=== PATIENT | male | born 1945 | race Caucasian/White ===

== ENCOUNTER → 2018-11-25 | Outpatient (CLI) | payer BC ==
[~2018-11-25] VITALS: Ht 157 cm; Wt 70.0 kg
[~2018-11-25] MED LIST: ALBU8.5H2 IH; ASP325T PO; ASP81TEC PO; ATOR40TA PO; CATHETER FLUSH 10 ML SYR IV PRN; DIPH25TA82 PO; FAMO20TA5 PO; FLT05NA16 NSEACH; ISM30TCR PO; METO-333 PO; NITR0.3T6 SL; OMEP20CA12 PO; PHEN-633 PO; PRAS10TA6 PO; SIMV80TA3 PO
[2018-11-25 08:56] LABS: ALANINE AMINOTRANSFERASE 27 U/L (0-55); ALBUMIN 4.2 GM/DL (3.2-4.5); ALKALINE PHOSPHATASE 103 U/L (40-136); BILIRUBIN,TOTAL 0.4 MG/DL (0.1-1.0); BUN/CREATININE RATIO 14; CALCIUM 8.3 MG/DL (8.5-10.1); CARBON DIOXIDE 26 MMOL/L (21-32); CHLORIDE 104 MMOL/L (98-107); CREATININE SERUM 0.88 MG/DL (0.60-1.30); GFR ESTIMATED > 60; GLUCOSE 106 MG/DL (70-105); POTASSIUM 3.9 MMOL/L (3.6-5.0); SODIUM 137 MMOL/L (135-145); TOTAL PROTEIN 7.2 GM/DL (6.4-8.2)
[2018-11-25 09:35] VITALS: BP 155/80
[2018-11-25 09:43] VITALS: BP 156/64
--- NOTE | 2018-11-25 18:59 | STRESS TEST ---
DATE OF SERVICE: 11/25/2018 EXERCISE MYOVIEW STRESS TEST REFERRING PHYSICIAN: Cyn Valentin DO Baseline heart rate is 64. Baseline blood pressure 154/82. Baseline EKG is sinus rhythm with no ischemic changes. In summary, the patient was injected with 10.93 mCi of technetium-99 Myoview and the resting images were obtained. Then, the patient started exercising with a baseline heart rate, blood pressure and EKG mentioned above. The patient was able to exercise for 7 minutes and 10 seconds on standard Renard protocol. With peak exercise level, EKG was showing [address] depression in II, III, aVF, V4, V5, V6. Blood pressure was 167/75. During recovery, heart rate and blood pressure returned to baseline. EKG returned to baseline. The resting and stress images were reviewed and compared in the short axis, horizontal long axis, and vertical long axis views. Review of the images showed good radiotracer uptake with no significant ischemia or infarction. SSS is 2, SDS 0, TID value 0.9. On the gated images, the left ventricle appeared to be normal size with normal contractility. Calculated ejection fraction 86%. CONCLUSION: 1. Fair exercise tolerance, a total of 7 minutes and 10 seconds on standard Renard protocol, total of 8.7 METS achieving 85% of maximum expected heart rate. 2. Appropriate heart rate and blood pressure response to exercise returned to baseline during recovery. 3. Nondiagnostic EKG changes with exercise returned to baseline during recovery. 4. No significant ischemia or infarction on SPECT images. 5. Normal left ventricular size with normal contractility. Calculated ejection fraction 86%. Job ID: [id number] DocumentID: [id number] Dictated Date: 11/25/2018 16:30:22 Chemical Educator Date: 11/25/2018 18:57:59 Dictated By: KEMAR HO MD
== END ==
LOC: CARD 08:04
PROVIDERS: ATTEND Physician Assistant
DX: I25.10 Atherosclerotic heart disease of native coronary artery without angina pectoris (principal); I10 Essential (primary) hypertension; E78.5 Hyperlipidemia, unspecified; G40.909 Epilepsy, unspecified, not intractable, without status epilepticus
CPT/HCPCS: 36415; 78452; 80053; 93017; 93306

== ENCOUNTER 2019-01-17 05:33 | Outpatient (CLI) | payer BC ==
[~2019-01-17] VITALS: Ht 154 cm; Wt 70.4 kg
[~2019-01-17 05:33] MED LIST changes: -CATHETER FLUSH 10 ML SYR IV PRN
[2019-01-17] MEDS ORDERED: ASPI-586 PO (12:14)
[2019-01-17] MEDS ORDERED: FAMO20TA5 PO (12:14)
[2019-01-17] MEDS ORDERED: OMEG-9 PO (12:14)
[2019-01-17] MEDS ORDERED: ATOR40TA70 PO (12:14)
[2019-01-17] MEDS ORDERED: FLUT9.9S NS (12:14)
[2019-01-17] MEDS ORDERED: PHEN100C11 PO (12:14)
[2019-01-17] MEDS ORDERED: ISOS30TA3 PO (12:14)
[2019-01-17] MEDS ORDERED: LISI10TA2 PO (12:14)
[2019-01-17] MEDS ORDERED: RT-ALBUINH IH (12:14)
[2019-01-17] MEDS ORDERED: METO-333 PO (12:14)
== END 2019-01-17 12:20 ==
LOC: PREOP 05:33
PROVIDERS: ATTEND Surgery
DX: Z01.818 Encounter for other preprocedural examination (principal)

== ENCOUNTER 2019-01-21 07:53 | Day surgery (SDC) | payer BC ==
[~2019-01-21 07:53] MED LIST changes: +ASPI-586 PO; +ATOR40TA70 PO; +FLUT9.9S NS; +ISOS30TA3 PO; +LISI10TA2 PO; +OMEG-9 PO; +PHEN100C11 PO; +RT-ALBUINH IH
[2019-01-21] MEDS ORDERED: LACTATED RINGERS 1,000 ML IV ONE (07:59)
[2019-01-21] MEDS ORDERED: LACTATED RINGERS 1,000 ML IV STA (08:23)
[2019-01-21] MEDS ORDERED: PROPOFOL INJECTION 50 ML IV ONE (08:25)
[2019-01-21 08:26] VITALS: BP 166/86
[2019-01-21 09:00] VITALS: BP 108/58
--- NOTE | 2019-01-21 09:04 | Progress Note-Post Operative ---
Post-Operative Progess Note Surgeon (s)/Slitting Machine Feeder (s) Surgeon ANI QUICK DO Slitting Machine Feeder: na Pre-Operative Diagnosis blood in stools Post-Operative Diagnosis post anal fissure, rectal polyp x2 Procedure & Operative Findings Date of Procedure 01/21/19 Procedure Performed/Findings colonoscopy with hot bx polypectomy x 2 Anesthesia Type per speedboat operator Estimated Blood Loss Estimated blood loss (mL): none Specimens/Packing Specimens Removed rectal polyp x 2 ANI QUICK DO Jan 21, 2019 09:04 POS
[2019-01-21 09:05] VITALS: BP 112/57
[2019-01-21] MEDS ORDERED: DOCU-143 PO (09:06)
--- NOTE | 2019-01-21 09:07 | Discharge Inst-Simple/Standard ---
Discharge Inst-Standard Discharge Medications New, Converted or Re-Newed RX: Other (over the counter Colace or stool softener\) Patient Instructions/Follow Up Plan of Care/Instructions/FU: 2 weeks Pamela Activity as Tolerated: Yes Discharge Diet: Regular Diet (high fiber) ANI QUICK DO Jan 21, 2019 09:06 POS
[2019-01-21 09:10] VITALS: BP 131/66
[2019-01-21 09:45] VITALS: BP 174/97
[2019-01-21 11:46] VITALS: BP 174/97
--- NOTE | 2019-01-21 14:22 | OPERATIVE REPORT ---
DATE OF SERVICE: 01/21/2019 PREOPERATIVE DIAGNOSIS: Blood in stools. POSTOPERATIVE DIAGNOSES: Diverticulosis, posterior anal fissure, rectal polyp x2. PROCEDURE: Colonoscopy with hot biopsy polypectomy x2. SURGEON: Ani Santiago DO ANESTHESIA: Per QUANTITATIVE ANALYST DEVELOPER. ESTIMATED BLOOD LOSS: None. COMPLICATIONS: None. INDICATIONS: The patient is a 73-year-old male with blood in stool. He understands risks and benefits of procedure and wished to proceed with procedure. Consent was signed in the chart. DESCRIPTION OF PROCEDURE: The patient was taken to the endoscopy suite, placed in left lateral recumbent position. Timeout was performed. Digital rectal exam was performed. No palpable polyps, masses or ulcerations. The patient noted to have a posterior anal fissure. Scope was inserted into the rectum and advanced all the way to cecum with minimal difficulty. Prep was adequate. Scope was then slowly retracted back. There were no polyps, masses or ulcerations in the cecum, ascending, transverse and descending colon. In the sigmoid colon, there is moderate amount of diverticulosis present. Scope was continuously retracted back into the rectum where there were 2 small polyps, which hot biopsy polypectomy was performed. Scope was retroflexed noting no other pathology. Scope was returned to its normal position, slowly withdrawn until completely removed. The patient tolerated procedure well without any complications, taken to recovery room in stable condition. RECOMMENDATIONS: The patient will be started on Colace 100 mg b.i.d. We will have him follow up in the office in 2 weeks for reexamination. I would consider diltiazem cream. The patient will need repeat colonoscopy in 5 years due to polyps. Follow up on pathology in 2-week appointment. The patient with diverticulosis, recommend high fiber diet. Job ID: [id number] DocumentID: [id number] Dictated Date: 01/21/2019 09:09:19 Cooking Instructor Date: 01/21/2019 14:21:16 Dictated By: ANI SANTIAGO DO
--- NOTE | 2019-01-23 13:45 | Anesthesia-General Post-Op ---
MAC Patient Condition Mental Status/LOC: Same as Preop Cardiovascular: Satisfactory Nausea/Vomiting: Absent Respiratory: Satisfactory Pain: Controlled Complications: Absent Post Op Complications Complications None Follow Up Care/Instructions Patient Instructions None needed. Anesthesiology Discharge Order Discharge Order late entry from 01/31/19 at 11:30: Patient is doing well, no complaints, stable vital signs, no apparent adverse anesthesia problems. No complications reported per nursing. CAL TOLEDO CRNA Jan 23, 2019 13:45 POS
--- OUTSIDE RECORDS SUMMARY | 2019-02-15 03:37 | XMS REPORT | Clinical Summary ---
Author Author User, Zachariah Parikh Organization Cyn Valentin DO, FACP Address Unknown Phone Allergies, Adverse Reactions, Alerts Allergy Name Reaction Description Start Date Severity Status Pr ovider No Known Allergies Issac shields Conditions or Problems Problem Name Problem Code Onset Date Status Entry Date Provider Comment Standard Description Annotate GERD 530.81 Active Cyn Valentin Esophageal reflux JOSEPH'S ESOPHAGUS 530.85 Active Cyn Valentin Joseph's esophagus HYPERCHOLESTEROLEMIA 272.0 Active Cyn Valentin Pure hypercholesterolemia RHINITIS 472.0 Resolved Cyn Valentin Chronic rhinitis SEIZURE 780.3 Active Cyn Valentin Convulsions DERMATITIS 692.9 Resolved Cyn Valentin Contact dermatitis and other eczema, unspecified cause RHINITIS, ALLERGIC NOS 477.9 Resolved Katrina Valentin Allergic rhinitis, cause unspecified CHEST PAIN, ATYPICAL 786.59 Resolved Cny Valentin Other chest pain PALPITATIONS, OCCASIONAL 785.1 Resolved Cyn Valentin Palpitations NEOPLASM, SKIN, UNCERTAIN BEHAVIOR 238.2 Resolved 2 Cyn Valentin Neoplasm of uncertain behavior of skin MYOCARDIAL PERFUSION SCAN, WITH STRESS TEST, ABNORMAL 794.39 Resolved Cyn Valentin Other nonsp ecific abnormal function study of cardiovascular system CORONARY ATHEROSCLEROSIS, [place] VESSEL 414.01 Active Cyn Valentin Coronary atherosclerosis of [place] n[place] nary artery PNEUMONIA 486 Resolved Cyn Valentin Pneumonia, organism unspecified COUGH 786.2 Resolved Cyn Valentin Cough HEALTH SCREENING V70.0 Resolved Cyn Olmstead rner Routine general medical examination at a health care facility HEALTH SCREENING V70.0 Inactive Cyn Olmstead rner Routine general medical examination at a health care facility ELEVATED BLOOD PRESSURE WITHOUT DIAGNOSIS OF HYPERTENSION 796.2 Resolved Cyn Valentin Elevated bl ood pressure reading without diagnosis of hypertension FOOT PAIN, LEFT 729.5 Resolved Cyn franco Pain in limb DERMATITIS, CONTACT, NOS 692.9 Active Cyn Valentin Contact dermatitis and other eczema, uns pecified cause HEALTH SCREENING V70.0 Inactive Cyn Olmstead rner Routine general medical examination at a health care facility Medication List Medication Instructions Start Date Stop Date Generic Name NDC Status Provider Patient Instruction FLONASE 50 MCG/ACT SUSP 2 squirts each nostril daily FLUTICASONE PROPIONATE 00466850021 Active Veda Piedra FISH OIL 1000 MG CAPS 3 PO daily OMEGA-3 FATTY AC IDS [id number] Active Cyn Valentin PROAIR HFA 108 (90 BASE) MCG/ACT AERS 2 puff Q4 hrs pr n wheezing Please provide patient spacer ALBUTEROL SULFATE [id number] No Longe r Active Cyn Valentin CLOBETASOL PROPIONATE 0.05 % CREA Apply to affected ar ea on left hand and lower arms at night for two weeks only. CLOBETASOL PRO PIONATE 87939972617 No Longer Active Cyn Valentin EFFIENT 10 MG TABS 1 PO daily PRASUGREL HCL 0000 5513023 No Longer Active Cynjosh Valentin LIPITOR 80 MG TABS 1 PO daily ATORVASTATIN CALCIUM 23390 041104 Active Cyn Janeth Valentin PREDNISONE 20 MG TAB 2 pills at once for 2 days then 1 pill daily for 2 days PREDNISONE 88251771121 No Longer Active Cyn Rubi Valentin BIAXIN XL PAC 500 MG TB24 2 pills at same time daily for 7 days CLARITHROMYCIN 83743759949 No Longer Active Cyn Janeth Valentin KISHOR 180 MG TABS 1 PO QD FEXOFENADINE HCL No Longer Active Cynjosh Valentin ASPIRIN 81 MG TBEC 1 po daily ASPIRIN 82670940793 No Longer Active Cynjosh Valentin SIMVASTATIN 80 MG TABS 1 po daily SIMVASTATIN 16 661863205 No Longer Active Cynjosh Valentin OMEPRAZOLE 20 MG CPDR 1 po daily OMEPRAZOLE 93487 044184 No Longer Active Cynjosh Valentin METOPROLOL TARTRATE 25 MG TABS 1 PO BID METOP ROLOL TARTRATE 72703301922 Active Cynjosh Valentin PEPCID 20 MG TAB 1 PO BID FAMOTIDINE 25234905818 Acti ve Cynjosh Valentin NITROSTAT 0.4 MG SL TAB 1 pill under tongue prn ches t pain. May repeat twice then must go to ER NITROGLYCERIN 77057767787 Active Mi ndjosh Valentin IMDUR 30 MG TAB CR 1 PO daily ISOSORBIDE MONONITR ATE 12934569278 Active Cynjosh Valentin ASPIRIN 325 MG TABS 1 PO daily ASPIRIN 26033113722 Ac tive Cynjosh Valentin BENADRYL 25 MG CAP 1-2 PO QHS for allergies DIP HENHYDRAMINE HCL 59551718660 Active Cyn Janeth Valentin LIPITOR 80 MG TABS 1 PO daily ATORVASTATIN CALCIU M 08890984399 No Longer Active Cyn Janeth Barbie CARMOL 40% UREA LOTION Apply to affected area twice daily fo r two weeks CARMOL 40% UREA LOTION No Longer Active M pamela Janeth Barbie [place] Apply to affected areas twice daily for two weeks [place] No Longer Active Cyn Michelle tesfaye Barbie FLONASE 50 MCG/DOSE INHALANT 2 puffs each nostril at night 03/26 FLONASE 50 MCG/DOSE INHALANT 52938151726 No Longer Active Cyn Adela tamela Barbie VITAMIN C 500 MG TABS 1 po daily ASCORBIC ACID 12 324615563 No Longer Active Cyn Janeth Valentin MULTIVITAMINS TABS 1 po daily MULTIPLE VITAMIN 0 6523389501 No Longer Active Cyn Janeth Valentin CLARITIN 10 MG TABS 1 po daily LORATADINE 6753986 6510 No Longer Active Cyn Janeth Valentin SIMVASTATIN 80 MG TABS 1 po daily SIMVASTATIN 8882310469 3 No Longer Active Cynjosh Valentin DILANTIN 100 MG CAPS 3 tabs po daily PHENYTOIN SOD IUM EXTENDED 32146833222 Active Veda Piedra Immunizations Vaccine Administration Date Value Standard Paddy cription Influenza vaccine given done influenz a virus vaccine, unspecified formulation pneumococcal immunization administered Done pneumococcal polysaccharide vaccine, 23 valent Influenza vaccine given 02/03/11 influenz a virus vaccine, unspecified formulation Vital Signs Date Name Value Unit Range Description blood pressure, diastolic - 8462-4 74 mm[Hg] BP hensley blood pressure, systolic - 8480-6 126 mm[Hg] BP sys pulse rate E&M - 8867-4 70 /min H eart rate respiratory rate E&M - 9279-1 14 /min Resp rate weight E&M - 3141-9 159 [lb_av] Weigh t Measured blood pressure, diastolic - 8462-4 74 mm[Hg] BP hensley blood pressure, systolic - 8480-6 136 mm[Hg] BP sys blood pressure, diastolic - 8462-4 78 mm[Hg] BP hensley blood pressure, systolic - 8480-6 160 mm[Hg] BP sys pulse rate E&M - 8867-4 64 /min H eart rate respiratory rate E&M - 9279-1 14 /min Resp rate temperature E&M 98.6 [degF] Body temp erature weight E&M - 3141-9 160 [lb_av] Weigh t Measured Diagnostic Results Date Name Value Unit Range Description Clinical Lists Update: CBC,CMP,FLP,TSH,H GA1C - Chemistry Estimated Glomerular Filtration Rate (calc) >60 mL/ min/1.73m2 albumin, serum 4.6 g/dL alkaline phosphatase, serum 82 U/L urea nitrogen, blood 11 mg/dL calcium, serum 9.1 mg/dL chloride, serum 103 mmol/L cholesterol, serum 133 mg/dL carbon dioxide, venous blood 29 mmol/L creatinine, serum 0.81 mg/dL HDL cholesterol, serum 98 mg/dL hemoglobin A1C, blood, as % of total hemoglobin 6.1 % thyroid stimulating hormone, serum 2.764 u[iU]/mL LDL cholesterol, serum 57 mg/dL potassium, serum 3.8 mmol/L protein, total, serum 7.4 g/dL aspartate aminotransferase (SGOT), serum 22 U/L alanine aminotransferase (SGPT), serum 23 U/L bilirubin, serum, total 0.5 mg/dL triglyceride, serum, fasting 204 mg/dL sodium, serum 138 mmol/L anion gap, serum 6 cholesterol/HDL ratio, serum, percent 3.80 glucose, plasma fasting 93 mg/dL Clinical Lists Update: CBC,CMP,FLP,TSH,H GA1C - Hematology platelet count 205 10*3/mm3 hematocrit, blood 43.2 % leukocyte count, blood 6.5 10*3/mm3 mean corpuscular volume, RBC 90.9 fL erythrocyte (RBC) count 4.75 10*6/mm3 red blood cell distribution width 12.6 % hemoglobin, blood 15.5 g/dL Clinical Lists Update: CBC,CMP,FLP,TSH,H GA1C - Toxicology phenytoin level, serum 7.6 ug/mL Clinical Lists Update: CMP,FLP - Pastoral Worker ry calcium, serum 9.0 mg/dL aspartate aminotransferase (SGOT), serum 28 U/L alanine aminotransferase (SGPT), serum 26 U/L chloride, serum 102 mmol/L bilirubin, serum, total 0.5 mg/dL triglyceride, serum, fasting 166 mg/dL cholesterol, serum 142 mg/dL sodium, serum 139 mmol/L anion gap, serum 9 carbon dioxide, venous blood 28 mmol/L cholesterol/HDL ratio, serum, percent 3.46 glucose, plasma fasting 93 mg/dL protein, total, serum 7.3 g/dL potassium, serum 4.7 mmol/L urea nitrogen, blood 11 mg/dL LDL cholesterol, serum 68 mg/dL creatinine, serum 0.84 mg/dL albumin, serum 4.4 g/dL HDL cholesterol, serum 101 mg/dL Estimated Glomerular Filtration Rate (calc) >60 mL/ min/1.73m2 alkaline phosphatase, serum 73 U/L Lab Report: A1C HPLC - Chemistry hemoglobin A1C, blood, as % of total hemoglobin 6.1 % 4.0-5.6 Lab Report: CBC - Chemistry polymorphonuclear neutrophils, absolute, manual 3.42 10E9/L {Cells}/uL 1.80-7.80 mean corpuscular hemoglobin concentration, rbc 35.9 g/dL 31.6-35.5 monocytes, absolute, manual 0.81 10E9/L {Cells}/uL 0.20-1. 00 lymphocytes, absolute, manual 2.02 10E9/L {Cells}/uL 1.00- 4.00 basophils, absolute, manual 0.01 10E9/L {Cells}/uL 0.00-0. 20 eosinophils, absolute, manual 0.25 10E9/L {Cells}/uL 0.00- 0.45 Lab Report: CBC - Hematology neutrophil count, CSF 52.6 % lymphocytes as percent of blood leukocytes, manual count 3 1.0 % mean platelet volume 10.9 fL 9.5-12.8 monocytes as percent of blood leukocytes 12.4 % basophils as percent of blood leukocytes, automated count 0.2 % mean corpuscular hemoglobin, RBC 32.6 pg 27. 6-33.8 hemoglobin, blood 15.5 g/dL 12.5-17.3 mean corpuscular volume, RBC 90.9 fL 83.7-99 .8 hematocrit, blood 43.2 % 38.3-51.2 platelet count 205 669-165 3575/03/11 eosinophils as percent of blood leukocytes 3.8 % Lab Report: CHEM 14 - Chemistry urea nitrogen, blood 11 mg/dL - urea nitrogen, blood 11 mg/dL - blood glucose, random 93 mg/dL 70-100 blood glucose, random 93 mg/dL 70-100 alkaline phosphatase, serum 73 U/L 43-123 alkaline phosphatase, serum 82 U/L 43-123 albumin, serum 4.4 g/dL 3.9-4.9 albumin, serum 4.6 g/dL 3.9-4.9 calcium, serum 9.1 mg/dL 8.5-10.5 calcium, serum 9.0 mg/dL 8.5-10.5 potassium, serum 4.7 mmol/L 3.5-5.5 aspartate aminotransferase (SGOT), serum 22 U/L 0-40 aspartate aminotransferase (SGOT), serum 28 U/L 0-40 alanine aminotransferase (SGPT), serum 23 U/L 0-40 alanine aminotransferase (SGPT), serum 26 U/L 0-40 bilirubin, serum, total 0.5 mg/dL 0.1-1.3 bilirubin, serum, total 0.5 mg/dL 0.1-1.3 sodium, serum 138 mmol/L 033-193 6298/09/03 sodium, serum 139 mmol/L 549-216 3498/03/11 chloride, blood 103 mmol/L 96-108 chloride, blood 102 mmol/L 96-108 bicarbonate, serum 29 mmol/L 18-30 bicarbonate, serum 28 mmol/L 18-30 protein total, urine 7.4 GM/DL 6.5-8.2 protein total, urine 7.3 GM/DL 6.5-8.2 potassium, serum 3.8 mmol/L 3.5-5.5 Lab Report: CHEM 14 - Lab CREATININE 0.81 0.50-1.50 CREATININE 0.84 0.50-1.50 Lab Report: LIPID GRP - Chemistry HDL cholesterol, serum 41 mg/dL 40-125 cholesterol, serum 133 mg/dL 954-021 7599/09/03 triglyceride, serum, random 166 mg/dL 30-150 HDL cholesterol, serum 35 mg/dL 40-125 cholesterol, serum 142 mg/dL 441-259 2818/03/11 triglyceride, serum, random 204 mg/dL 30-150 Lab Report: TSH - Chemistry thyroid stimulating hormone, serum 2.764 u[iU]/mL 0 .300-5.000 Encounters Code Encounter Date Provider Facility CPT-31443 Ofc Vst, Est Level IV 15:52:21 CDT Cyn Chapman tamela Valentin DO, FACP CPT-43213 Ofc Vst, Est Level III 11:14:55 CDT Cyn S tamela Barbie [facility] CPT-17486 Ofc Vst, Est Level IV 16:08:02 CDT Cyn Adela rapp Barbie [facility] CPT-25834 Ofc Vst, Est Level IV 15:52:39 COMPUTER TECHNOLOGIST Cyn Chapman tamela Valentin [facility] CPT-45005 Ofc Vst, Est Level IV 11:10:54 CDT Cyn Chapman tamela Valentin, DO, FACP CPT-57820 Ofc Vst, Est Level IV 10:19:53 CDT Cyn Chapman tamela Valentin, DO, FACP CPT-27088 Ofc Vst, Est Level IV 10:30:27 CDT Cyn Adela Valentin, DO, FACP CPT-61881 Ofc Vst, Est Level IV 15:27:12 CDT Cyn Adela Valentin, DO, FACP CPT-25889 Ofc Vst, Est Level IV 09:52:53 COMPUTER TECHNOLOGIST Cynjosh Valentin, DO, FACP CPT-87153 Ofc Vst, Est Level IV 10:01:47 CDT Cyn Adela Valentin, DO, FACP CPT-82641 Ofc Vst, Est Level IV 10:01:47 COMPUTER TECHNOLOGIST Cyn Goldsmithi Gilberto Barbie, DO, FACP CPT-83647 Ofc Vst, Est Level IV 09:28:13 CDT Cyn Goldsmithi Gilberto Barbie, DO, FACP CPT-36014 Ofc Vst, Est Level IV 10:29:59 COMPUTER TECHNOLOGIST Cyn Lemaner Cynjosh Valentin, DO, FACP CPT-51780 Ofc Vst, Est Level IV 14:47:20 COMPUTER TECHNOLOGIST Cyn Goldsmithi Gilberto Barbie, DO, FACP CPT-87433 Ofc Vst, New Level IV 14:14:21 CDT Cyn Lemajoan Valentin, DO, FACP Procedures Code Procedure Name Date Entry Date Standard Desc ription CPT-80320 Preventive, Est, (65+) 14:26:26 CDT CPT-09966 Preventive, Est, (65+) 20:45:46 CDT CPT-98794 Preventive, Est, (65+) 15:01:19 CDT CPT-77648 Preventive, Est, (40-64) 10:39:03 CDT 05/07
--- OUTSIDE RECORDS SUMMARY | 2019-02-15 03:37 | XMS REPORT | Clinical Summary ---
[...] cause unspecified CHEST PAIN, ATYPICAL 786.59 Resolved Cyn Valentin Other chest pain PALPITATIONS, OCCASIONAL 785.1 Resolved Cyn Valentin Palpitations NEOPLASM, SKIN, UNCERTAIN BEHAVIOR 238.2 Resolved 2 Cyn Valentin Neoplasm of uncertain behavior of skin MYOCARDIAL PERFUSION SCAN, WITH STRESS TEST, ABNORMAL 794.39 Resolved Cyn Valentin Other nonsp ecific abnormal function study of cardiovascular system CORONARY ATHEROSCLEROSIS, [place] VESSEL 414.01 Active Cyn Valentin Coronary atherosclerosis of [place] nalini nary artery PNEUMONIA 486 Resolved Cyn [...] 2 squirts each nostril daily FLUTICASONE PROPIONATE 02520379789 Active Veda Piedra FISH OIL 1000 MG CAPS 3 PO daily OMEGA-3 FATTY AC IDS 65505269615 Active Cyn Valentin PROAIR HFA 108 (90 BASE) MCG/ACT AERS 2 puff Q4 hrs pr n wheezing Please provide patient spacer ALBUTEROL SULFATE 12650742450 No Longe r Active Cyn Valentin CLOBETASOL PROPIONATE 0.05 % CREA Apply to affected ar ea on left hand and lower arms at night for two weeks only. CLOBETASOL PRO PIONATE 43744156286 No Longer Active Cyn Valentin EFFIENT 10 MG TABS 1 PO daily PRASUGREL HCL 0000 3543362 No Longer Active Cynjosh Valentin LIPITOR 80 MG TABS 1 PO daily ATORVASTATIN CALCIUM 97030 674704 Active Cyn Janeth Valentin PREDNISONE 20 MG TAB 2 pills at once for 2 days then 1 pill daily for 2 days PREDNISONE 63610182337 No Longer Active Cyn Rubi Valentin BIAXIN XL PAC 500 MG TB24 2 pills at same time daily for 7 days CLARITHROMYCIN 68601567292 No Longer Active Cyn Janeth Valentin KISHOR 180 MG TABS 1 PO QD FEXOFENADINE HCL No Longer Active Cynjosh Valentin ASPIRIN 81 MG TBEC 1 po daily ASPIRIN 70242081549 No Longer Active Cynjosh Valentin SIMVASTATIN 80 MG TABS 1 po daily SIMVASTATIN 16 904764618 No Longer Active Cynjosh Valentin OMEPRAZOLE 20 MG CPDR 1 po daily OMEPRAZOLE 08451 048117 No Longer Active Cynjosh Valentin METOPROLOL TARTRATE 25 MG TABS 1 PO BID METOP ROLOL TARTRATE 69520247220 Active Cynjosh Valentin PEPCID 20 MG TAB 1 PO BID FAMOTIDINE 88720515417 Acti ve Cynjosh Valentin NITROSTAT 0.4 MG SL TAB 1 pill under tongue prn ches t pain. May repeat twice then must go to ER NITROGLYCERIN 73670436375 Active Mi ndjosh Valentin IMDUR 30 MG TAB CR 1 PO daily ISOSORBIDE MONONITR ATE 88622656005 Active Cynjosh Valentin ASPIRIN 325 MG TABS 1 PO daily ASPIRIN 23190164087 Ac tive Cynjosh Valentin BENADRYL 25 MG CAP 1-2 PO QHS for allergies DIP HENHYDRAMINE HCL 15278198566 Active Cyn Janeth Valentin LIPITOR 80 MG TABS 1 PO daily ATORVASTATIN CALCIU M 79460806397 No Longer Active Cyn Janeth Barbie CARMOL [...] at night 03/26 FLONASE 50 MCG/DOSE INHALANT 59899793925 No Longer Active Cyn Adela tamela Barbie VITAMIN C 500 MG TABS 1 po daily ASCORBIC ACID 12 444743199 No Longer Active Cyn Janeth Valentin MULTIVITAMINS TABS 1 po daily MULTIPLE VITAMIN 0 3230557680 No Longer Active Cyn Janeth Valentin CLARITIN 10 MG TABS 1 po daily LORATADINE 9423442 6245 No Longer Active Cyn Janeth Valentin SIMVASTATIN 80 MG TABS 1 po daily SIMVASTATIN 7469068683 3 No Longer Active Cynjosh Valentin DILANTIN 100 MG CAPS 3 tabs po daily PHENYTOIN SOD IUM EXTENDED 72819507427 Active Veda Piedra Immunizations Vaccine Administration Date [...] 7.6 ug/mL Clinical Lists Update: CMP,FLP - Railroad Car Cleaner ry calcium, serum 9.0 mg/dL aspartate aminotransferase [...] blood 43.2 % 38.3-51.2 platelet count 205 204-928 6600/03/11 eosinophils as percent of blood leukocytes 3.8 [...] 0.5 mg/dL 0.1-1.3 sodium, serum 138 mmol/L 328-072 7730/09/03 sodium, serum 139 mmol/L 914-108 1638/03/11 chloride, blood 103 mmol/L 96-108 chloride, blood [...] 41 mg/dL 40-125 cholesterol, serum 133 mg/dL 114-313 2261/09/03 triglyceride, serum, random 166 mg/dL 30-150 HDL cholesterol, serum 35 mg/dL 40-125 cholesterol, serum 142 mg/dL 627-249 9162/03/11 triglyceride, serum, random 204 mg/dL 30-150 Lab Report: TSH - Chemistry thyroid stimulating hormone, serum 2.764 u[iU]/mL 0 .300-5.000 Encounters Code Encounter Date Provider Facility CPT-25128 Ofc Vst, Est Level IV 15:52:21 CDT Cyn Chapman tamela Valentin DO, FACP CPT-41889 Ofc Vst, Est Level III 11:14:55 CDT Cyn S tamela [facility] CPT-33525 Ofc Vst, Est Level IV 16:08:02 CDT Cyn Adela rapp Bar[facility] CPT-09950 Ofc Vst, Est Level IV 15:52:39 CONSULTING INTERN Cyn Chapman tamela Valentin [facility] CPT-50652 Ofc Vst, Est Level IV 11:10:54 CDT Cyn Chapman tamela Valentin, DO, FACP CPT-72801 Ofc Vst, Est Level IV 10:19:53 CDT Cyn Chapman tamela Valentin, DO, FACP CPT-38638 Ofc Vst, Est Level IV 10:30:27 CDT Cyn Adela Valentin, DO, FACP CPT-11229 Ofc Vst, Est Level IV 15:27:12 CDT Cyn Adela Valentin, DO, FACP CPT-81169 Ofc Vst, Est Level IV 09:52:53 CONSULTING INTERN Cynjosh Valentin, DO, FACP CPT-09040 Ofc Vst, Est Level IV 10:01:47 CDT Cyn Adela Valentin, DO, FACP CPT-48758 Ofc Vst, Est Level IV 10:01:47 CONSULTING INTERN Cyn Goldsmithi Gilberto Barbie, DO, FACP CPT-26927 Ofc Vst, Est Level IV 09:28:13 CDT Cyn Goldsmithi Gilberto Barbie, DO, FACP CPT-37883 Ofc Vst, Est Level IV 10:29:59 CONSULTING INTERN Cyn Lemaner Cynjosh Valentin, DO, FACP CPT-01030 Ofc Vst, Est Level IV 14:47:20 CONSULTING INTERN Cyn Goldsmithi Gilberto Barbie, DO, FACP CPT-33044 Ofc Vst, New Level IV 14:14:21 CDT Cyn Lemajoan Valentin, DO, FACP Procedures Code Procedure Name Date Entry Date Standard Desc ription CPT-91503 Preventive, Est, (65+) 14:26:26 CDT CPT-44282 Preventive, Est, (65+) 20:45:46 CDT CPT-45036 Preventive, Est, (65+) 15:01:19 CDT CPT-53000 Preventive, Est, (40-64) 10:39:03 CDT 05/07
--- OUTSIDE RECORDS SUMMARY | 2019-02-15 03:37 | XMS REPORT | Clinical Summary ---
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 CLOBETASOL PRO PIONATE 13246670261 No Longer Active Cyn Valentin EFFIENT 10 MG TABS 1 PO daily PRASUGREL HCL 0000 0710649 No Longer Active Cynjosh Valentin LIPITOR 80 MG TABS 1 PO daily ATORVASTATIN CALCIUM 57149 746784 Active Cyn Janeth Valentin PREDNISONE 20 MG TAB 2 pills at once for 2 days then 1 pill daily for 2 days PREDNISONE 23826782573 No Longer Active Cyn Rubi Valentin BIAXIN XL PAC 500 MG TB24 2 pills at same time daily for 7 days CLARITHROMYCIN 87654930352 No Longer Active Cyn Janeth Valentin KISHOR 180 MG TABS 1 PO QD FEXOFENADINE HCL No Longer Active Cynjosh Valentin ASPIRIN 81 MG TBEC 1 po daily ASPIRIN 05666456743 No Longer Active Cynjosh Valentin SIMVASTATIN 80 MG TABS 1 po daily SIMVASTATIN 16 167734501 No Longer Active Cynjosh Valentin OMEPRAZOLE 20 MG CPDR 1 po daily OMEPRAZOLE 84402 055059 No Longer Active Cynjosh Valentin METOPROLOL TARTRATE 25 MG TABS 1 PO BID METOP ROLOL TARTRATE 33805100333 Active Cynjosh Valentin PEPCID 20 MG TAB 1 PO BID FAMOTIDINE 05727247228 Acti ve Cynjosh Valentin NITROSTAT 0.4 MG SL TAB 1 pill under tongue prn ches t pain. May repeat twice then must go to ER NITROGLYCERIN 30572574072 Active Mi ndjosh Valentin IMDUR 30 MG TAB CR 1 PO daily ISOSORBIDE MONONITR ATE 08640596500 Active Cynjosh Valentin ASPIRIN 325 MG TABS 1 PO daily ASPIRIN 29161417770 Ac tive Cynjosh Valentin BENADRYL 25 MG CAP 1-2 PO QHS for allergies DIP HENHYDRAMINE HCL 43027678692 Active Cyn Janeth Valentin LIPITOR 80 MG TABS 1 PO daily ATORVASTATIN CALCIU M 10382217368 No Longer Active Cyn Janeth Barbie CARMOL [...] at night 03/26 FLONASE 50 MCG/DOSE INHALANT 61502321085 No Longer Active Cyn Adela tamela Barbie VITAMIN C 500 MG TABS 1 po daily ASCORBIC ACID 12 894162372 No Longer Active Cyn Janeth Valentin MULTIVITAMINS TABS 1 po daily MULTIPLE VITAMIN 0 3355109092 No Longer Active Cyn Janeth Valentin CLARITIN 10 MG TABS 1 po daily LORATADINE 4564367 4196 No Longer Active Cyn Janeth Valentin SIMVASTATIN 80 MG TABS 1 po daily SIMVASTATIN 3615863582 3 No Longer Active Cynjosh Valentin DILANTIN 100 MG CAPS 3 tabs po daily PHENYTOIN SOD IUM EXTENDED 79920797508 Active Veda Piedra Immunizations Vaccine Administration Date [...] 7.6 ug/mL Clinical Lists Update: CMP,FLP - Security Attendant ry calcium, serum 9.0 mg/dL aspartate aminotransferase [...] blood 43.2 % 38.3-51.2 platelet count 205 985-299 1825/03/11 eosinophils as percent of blood leukocytes 3.8 [...] 0.5 mg/dL 0.1-1.3 sodium, serum 138 mmol/L 172-380 8488/09/03 sodium, serum 139 mmol/L 649-541 8836/03/11 chloride, blood 103 mmol/L 96-108 chloride, blood [...] 41 mg/dL 40-125 cholesterol, serum 133 mg/dL 537-828 7172/09/03 triglyceride, serum, random 166 mg/dL 30-150 HDL cholesterol, serum 35 mg/dL 40-125 cholesterol, serum 142 mg/dL 569-517 5982/03/11 triglyceride, serum, random 204 mg/dL 30-150 Lab Report: TSH - Chemistry thyroid stimulating hormone, serum 2.764 u[iU]/mL 0 .300-5.000 Encounters Code Encounter Date Provider Facility CPT-69076 Ofc Vst, Est Level IV 15:52:21 CDT Cyn Chapman tamela Valentin DO, FACP CPT-62434 Ofc Vst, Est Level III 11:14:55 CDT Cyn S tamela Barbie [facility] CPT-88201 Ofc Vst, Est Level IV 16:08:02 CDT Cyn Adela rapp Barbie [facility] CPT-07273 Ofc Vst, Est Level IV 15:52:39 AEROSPACE TECHNICIAN Cyn Chapman tamela Valentin [facility] CPT-87792 Ofc Vst, Est Level IV 11:10:54 CDT Cyn Chapman tamela Valentin, DO, FACP CPT-50726 Ofc Vst, Est Level IV 10:19:53 CDT Cyn Chapman tamela Valentin, DO, FACP CPT-26147 Ofc Vst, Est Level IV 10:30:27 CDT Cyn Adela Valentin, DO, FACP CPT-37240 Ofc Vst, Est Level IV 15:27:12 CDT Cyn Adela Valentin, DO, FACP CPT-95630 Ofc Vst, Est Level IV 09:52:53 AEROSPACE TECHNICIAN Cynjosh Valentin, DO, FACP CPT-38655 Ofc Vst, Est Level IV 10:01:47 CDT Cyn Adela Valentin, DO, FACP CPT-43886 Ofc Vst, Est Level IV 10:01:47 AEROSPACE TECHNICIAN Cyn Goldsmithi Gilberto Barbie, DO, FACP CPT-82563 Ofc Vst, Est Level IV 09:28:13 CDT Cyn Goldsmithi Gilberto Barbie, DO, FACP CPT-54751 Ofc Vst, Est Level IV 10:29:59 AEROSPACE TECHNICIAN Cyn Lemaner Cynjosh Valentin, DO, FACP CPT-21122 Ofc Vst, Est Level IV 14:47:20 AEROSPACE TECHNICIAN Cyn Goldsmithi Gilberto Barbie, DO, FACP CPT-77010 Ofc Vst, New Level IV 14:14:21 CDT Cyn Lemajoan Valentin, DO, FACP Procedures Code Procedure Name Date Entry Date Standard Desc ription CPT-26909 Preventive, Est, (65+) 14:26:26 CDT CPT-14758 Preventive, Est, (65+) 20:45:46 CDT CPT-58047 Preventive, Est, (65+) 15:01:19 CDT CPT-88464 Preventive, Est, (40-64) 10:39:03 CDT 05/07
--- OUTSIDE RECORDS SUMMARY | 2019-02-15 03:37 | XMS REPORT | Clinical Summary ---
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 CLOBETASOL PRO PIONATE 58790127471 No Longer Active Cyn Valentin EFFIENT 10 MG TABS 1 PO daily PRASUGREL HCL 0000 8433343 No Longer Active Cynjosh Valentin LIPITOR 80 MG TABS 1 PO daily ATORVASTATIN CALCIUM 20330 897002 Active Cyn Janeth Valentin PREDNISONE 20 MG TAB 2 pills at once for 2 days then 1 pill daily for 2 days PREDNISONE 42803808350 No Longer Active Cyn Rubi Valentin BIAXIN XL PAC 500 MG TB24 2 pills at same time daily for 7 days CLARITHROMYCIN 94079531269 No Longer Active Cyn Janeth Valentin KISHOR 180 MG TABS 1 PO QD FEXOFENADINE HCL No Longer Active Cynjosh Valentin ASPIRIN 81 MG TBEC 1 po daily ASPIRIN 71180614630 No Longer Active Cynjosh Valentin SIMVASTATIN 80 MG TABS 1 po daily SIMVASTATIN 16 881066246 No Longer Active Cynjosh Valentin OMEPRAZOLE 20 MG CPDR 1 po daily OMEPRAZOLE 25012 987829 No Longer Active Cynjosh Valentin METOPROLOL TARTRATE 25 MG TABS 1 PO BID METOP ROLOL TARTRATE 92693345056 Active Cynjosh Valentin PEPCID 20 MG TAB 1 PO BID FAMOTIDINE 61484100157 Acti ve Cynjosh Valentin NITROSTAT 0.4 MG SL TAB 1 pill under tongue prn ches t pain. May repeat twice then must go to ER NITROGLYCERIN 51787124567 Active Mi ndjosh Valentin IMDUR 30 MG TAB CR 1 PO daily ISOSORBIDE MONONITR ATE 97661538148 Active Cynjosh Valentin ASPIRIN 325 MG TABS 1 PO daily ASPIRIN 48526819004 Ac tive Cynjosh Valentin BENADRYL 25 MG CAP 1-2 PO QHS for allergies DIP HENHYDRAMINE HCL 94475909549 Active Cyn Janeth Valentin LIPITOR 80 MG TABS 1 PO daily ATORVASTATIN CALCIU M 78110560493 No Longer Active Cyn Janeth Barbie CARMOL [...] at night 03/26 FLONASE 50 MCG/DOSE INHALANT 77711871240 No Longer Active Cyn Adela tamela Barbie VITAMIN C 500 MG TABS 1 po daily ASCORBIC ACID 12 753218125 No Longer Active Cyn Janeth Valentin MULTIVITAMINS TABS 1 po daily MULTIPLE VITAMIN 0 5131697337 No Longer Active Cyn Janeth Valentin CLARITIN 10 MG TABS 1 po daily LORATADINE 3332728 1126 No Longer Active Cyn Janeth Valentin SIMVASTATIN 80 MG TABS 1 po daily SIMVASTATIN 7759006230 3 No Longer Active Cynjosh Valentin DILANTIN 100 MG CAPS 3 tabs po daily PHENYTOIN SOD IUM EXTENDED 24038522114 Active Veda Piedra Immunizations Vaccine Administration Date [...] 7.6 ug/mL Clinical Lists Update: CMP,FLP - Novelty Balloon Assembler And Packer ry calcium, serum 9.0 mg/dL aspartate aminotransferase [...] neutrophils, absolute, manual 3.42 10E9/L {Cells}/uL 1.80-7.80 monocytes, absolute, manual 0.81 10E9/L {Cells}/uL 0.20-1. 00 mean corpuscular hemoglobin concentration, rbc 35.9 g/dL 31.6-35.5 lymphocytes, absolute, manual 2.02 10E9/L {Cells}/uL 1.00- 4.00 eosinophils, absolute, manual 0.25 10E9/L {Cells}/uL 0.00- 0.45 basophils, absolute, manual 0.01 10E9/L {Cells}/uL 0.00-0. 20 Lab Report: CBC - Hematology neutrophil count, CSF 52.6 % lymphocytes as percent of blood leukocytes, manual count 3 1.0 % eosinophils as percent of blood leukocytes 3.8 % platelet count 205 727-175 9265/03/11 mean corpuscular hemoglobin, RBC 32.6 pg 27. 6-33.8 mean platelet volume 10.9 fL 9.5-12.8 basophils as percent of blood leukocytes, automated count 0.2 % hemoglobin, blood 15.5 g/dL 12.5-17.3 hematocrit, blood 43.2 % 38.3-51.2 monocytes as percent of blood leukocytes 12.4 % mean corpuscular volume, RBC 90.9 fL 83.7-99 .8 Lab Report: CHEM 14 - Chemistry calcium, serum 9.0 mg/dL 8.5-10.5 calcium, serum 9.1 mg/dL 8.5-10.5 bilirubin, serum, total 0.5 mg/dL 0.1-1.3 bilirubin, serum, total 0.5 mg/dL 0.1-1.3 urea nitrogen, blood 11 mg/dL 5-25 urea nitrogen, blood 11 mg/dL 5-25 blood glucose, random 93 mg/dL 70-100 blood glucose, random 93 mg/dL 70-100 protein total, urine 7.3 GM/DL 6.5-8.2 protein total, urine 7.4 GM/DL 6.5-8.2 potassium, serum 4.7 mmol/L 3.5-5.5 potassium, serum 3.8 mmol/L 3.5-5.5 albumin, serum 4.4 g/dL 3.9-4.9 albumin, serum 4.6 g/dL 3.9-4.9 chloride, blood 102 mmol/L 96-108 chloride, blood 103 mmol/L 96-108 bicarbonate, serum 28 mmol/L 18-30 bicarbonate, serum 29 mmol/L 18-30 sodium, serum 139 mmol/L 994-728 0469/03/11 sodium, serum 138 mmol/L 807-289 9620/09/03 alkaline phosphatase, serum 73 U/L 43-123 alkaline phosphatase, serum 82 U/L 43-123 aspartate aminotransferase (SGOT), serum 28 U/L 0-40 aspartate aminotransferase (SGOT), serum 22 U/L 0-40 alanine aminotransferase (SGPT), serum 26 U/L 0-40 alanine aminotransferase (SGPT), serum 23 U/L 0-40 Lab Report: CHEM 14 - Lab CREATININE 0.81 0.50-1.50 CREATININE 0.84 0.50-1.50 Lab Report: LIPID GRP - Chemistry cholesterol, serum 133 mg/dL 719-252 8940/03/11 HDL cholesterol, serum 35 mg/dL 40-125 triglyceride, serum, random 204 mg/dL 30-150 triglyceride, serum, random 166 mg/dL 30-150 HDL cholesterol, serum 41 mg/dL 40-125 cholesterol, serum 142 mg/dL 100-200 Lab Report: TSH - Chemistry thyroid stimulating hormone, serum 2.764 u[iU]/mL 0 .300-5.000 Encounters Code Encounter Date Provider Facility CPT-77772 Ofc Vst, Est Level IV 15:52:21 CDT Cyn Chapman tamela Valentin DO, FACP CPT-70113 Ofc Vst, Est Level III 11:14:55 CDT Cyn S tamela Valentin [facility] CPT-89035 Ofc Vst, Est Level IV 16:08:02 CDT Cyn Adela rapp Barbie [facility] CPT-00743 Ofc Vst, Est Level IV 15:52:39 COPING MACHINE ASSEMBLER Cyn Chapman tamela Valentin [facility] CPT-56028 Ofc Vst, Est Level IV 11:10:54 CDT Cyn Chapman tamela Valentin, DO, FACP CPT-93531 Ofc Vst, Est Level IV 10:19:53 CDT Cyn Chapman tamela Valentin, DO, FACP CPT-87079 Ofc Vst, Est Level IV 10:30:27 CDT Cyn Adela Valentin, DO, FACP CPT-82581 Ofc Vst, Est Level IV 15:27:12 CDT Cyn Adela Valentin, DO, FACP CPT-26206 Ofc Vst, Est Level IV 09:52:53 COPING MACHINE ASSEMBLER Cynjosh Valentin, DO, FACP CPT-89622 Ofc Vst, Est Level IV 10:01:47 CDT Cyn Adela Valentin, DO, FACP CPT-67309 Ofc Vst, Est Level IV 10:01:47 COPING MACHINE ASSEMBLER Cyn Goldsmithi Gilberto Barbie, DO, FACP CPT-62805 Ofc Vst, Est Level IV 09:28:13 CDT Cyn Goldsmithi Gilberto Barbie, DO, FACP CPT-40960 Ofc Vst, Est Level IV 10:29:59 COPING MACHINE ASSEMBLER Cyn Lemaner Cynjosh Valentin, DO, FACP CPT-13673 Ofc Vst, Est Level IV 14:47:20 COPING MACHINE ASSEMBLER Cyn Goldsmithi Gilberto Barbie, DO, FACP CPT-42557 Ofc Vst, New Level IV 14:14:21 CDT Cyn Lemaojan Valentin, DO, FACP Procedures Code Procedure Name Date Entry Date Standard Desc ription CPT-20983 Preventive, Est, (65+) 14:26:26 CDT CPT-39842 Preventive, Est, (65+) 20:45:46 CDT CPT-11349 Preventive, Est, (65+) 15:01:19 CDT CPT-62701 Preventive, Est, (40-64) 10:39:03 CDT 05/07
--- OUTSIDE RECORDS SUMMARY | 2019-02-15 03:38 | XMS REPORT | Clinical Summary ---
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 CLOBETASOL PRO PIONATE 28402878040 No Longer Active Cyn Valentin EFFIENT 10 MG TABS 1 PO daily PRASUGREL HCL 0000 2915382 No Longer Active Cynjosh Valentin LIPITOR 80 MG TABS 1 PO daily ATORVASTATIN CALCIUM 88077 083165 Active Cyn Janeth Valentin PREDNISONE 20 MG TAB 2 pills at once for 2 days then 1 pill daily for 2 days PREDNISONE 02219091321 No Longer Active Cyn Rubi Valentin BIAXIN XL PAC 500 MG TB24 2 pills at same time daily for 7 days CLARITHROMYCIN 53329052626 No Longer Active Cyn Janeth Valentin KISHOR 180 MG TABS 1 PO QD FEXOFENADINE HCL No Longer Active Cynjosh Valentin ASPIRIN 81 MG TBEC 1 po daily ASPIRIN 68723268983 No Longer Active Cynjosh Valentin SIMVASTATIN 80 MG TABS 1 po daily SIMVASTATIN 16 027181549 No Longer Active Cynjosh Valentin OMEPRAZOLE 20 MG CPDR 1 po daily OMEPRAZOLE 85659 594330 No Longer Active Cynjosh Valentin METOPROLOL TARTRATE 25 MG TABS 1 PO BID METOP ROLOL TARTRATE 86498093098 Active Cynjosh Valentin PEPCID 20 MG TAB 1 PO BID FAMOTIDINE 01489477602 Acti ve Cynjosh Valentin NITROSTAT 0.4 MG SL TAB 1 pill under tongue prn ches t pain. May repeat twice then must go to ER NITROGLYCERIN 05995449667 Active Mi ndjosh Valentin IMDUR 30 MG TAB CR 1 PO daily ISOSORBIDE MONONITR ATE 97857418235 Active Cynjosh Valentin ASPIRIN 325 MG TABS 1 PO daily ASPIRIN 52187354114 Ac tive Cynjosh Valentin BENADRYL 25 MG CAP 1-2 PO QHS for allergies DIP HENHYDRAMINE HCL 44246324694 Active Cyn Janeth Valentin LIPITOR 80 MG TABS 1 PO daily ATORVASTATIN CALCIU M 61741662618 No Longer Active Cyn Janeth Barbie CARMOL [...] at night 03/26 FLONASE 50 MCG/DOSE INHALANT 08058580693 No Longer Active Cyn Adela tamela Barbie VITAMIN C 500 MG TABS 1 po daily ASCORBIC ACID 12 664344979 No Longer Active Cyn Janeth Valentin MULTIVITAMINS TABS 1 po daily MULTIPLE VITAMIN 0 8779486866 No Longer Active Cyn Janeth Valentin CLARITIN 10 MG TABS 1 po daily LORATADINE 4305296 7657 No Longer Active Cyn Janeth Valentin SIMVASTATIN 80 MG TABS 1 po daily SIMVASTATIN 6931894727 3 No Longer Active Cynjosh Valentin DILANTIN 100 MG CAPS 3 tabs po daily PHENYTOIN SOD IUM EXTENDED 74426760733 Active Veda Piedra Immunizations Vaccine Administration Date [...] 7.6 ug/mL Clinical Lists Update: CMP,FLP - Electron Beam Photo Mask Maker ry calcium, serum 9.0 mg/dL aspartate aminotransferase [...] blood 43.2 % 38.3-51.2 platelet count 205 504-526 5579/03/11 eosinophils as percent of blood leukocytes 3.8 [...] 0.5 mg/dL 0.1-1.3 sodium, serum 138 mmol/L 392-012 9430/09/03 sodium, serum 139 mmol/L 791-539 9825/03/11 chloride, blood 103 mmol/L 96-108 chloride, blood [...] 41 mg/dL 40-125 cholesterol, serum 133 mg/dL 833-249 5996/09/03 triglyceride, serum, random 166 mg/dL 30-150 HDL cholesterol, serum 35 mg/dL 40-125 cholesterol, serum 142 mg/dL 587-361 7960/03/11 triglyceride, serum, random 204 mg/dL 30-150 Lab Report: TSH - Chemistry thyroid stimulating hormone, serum 2.764 u[iU]/mL 0 .300-5.000 Encounters Code Encounter Date Provider Facility CPT-01986 Ofc Vst, Est Level IV 15:52:21 CDT Cyn Chapman tamela Valentin DO, FACP CPT-26076 Ofc Vst, Est Level III 11:14:55 CDT Cyn S tamela Barbie [facility] CPT-63920 Ofc Vst, Est Level IV 16:08:02 CDT Cyn Adela rapp Barbie [facility] CPT-11414 Ofc Vst, Est Level IV 15:52:39 HYDRATOR Cyn Chapman tamela Valentin [facility] CPT-50085 Ofc Vst, Est Level IV 11:10:54 CDT Cyn Chapman tamela Valentin, DO, FACP CPT-24623 Ofc Vst, Est Level IV 10:19:53 CDT Cyn Chapman tamela Valentin, DO, FACP CPT-24676 Ofc Vst, Est Level IV 10:30:27 CDT Cyn Adela Valentin, DO, FACP CPT-30452 Ofc Vst, Est Level IV 15:27:12 CDT Cyn Adela Valentin, DO, FACP CPT-41557 Ofc Vst, Est Level IV 09:52:53 HYDRATOR Cynjosh Valentin, DO, FACP CPT-88294 Ofc Vst, Est Level IV 10:01:47 CDT Cny Adela Valentin, DO, FACP CPT-88814 Ofc Vst, Est Level IV 10:01:47 HYDRATOR Cyn Goldsmithi Gilberto Barbie, DO, FACP CPT-03830 Ofc Vst, Est Level IV 09:28:13 CDT Cyn Goldsmithi Gilberto Barbie, DO, FACP CPT-93951 Ofc Vst, Est Level IV 10:29:59 HYDRATOR Cyn Lemaner Cynjosh Valentin, DO, FACP CPT-57052 Ofc Vst, Est Level IV 14:47:20 HYDRATOR Cyn Goldsmithi Gilberto Barbie, DO, FACP CPT-89181 Ofc Vst, New Level IV 14:14:21 CDT Cny Lemajoan Valentin, DO, FACP Procedures Code Procedure Name Date Entry Date Standard Desc ription CPT-69463 Preventive, Est, (65+) 14:26:26 CDT CPT-23659 Preventive, Est, (65+) 20:45:46 CDT CPT-44223 Preventive, Est, (65+) 15:01:19 CDT CPT-56921 Preventive, Est, (40-64) 10:39:03 CDT 05/07
--- OUTSIDE RECORDS SUMMARY | 2019-02-15 03:38 | XMS REPORT | Clinical Summary ---
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 CLOBETASOL PRO PIONATE 74788826595 No Longer Active Cyn Valentin EFFIENT 10 MG TABS 1 PO daily PRASUGREL HCL 0000 7608782 No Longer Active Cynjosh Valentin LIPITOR 80 MG TABS 1 PO daily ATORVASTATIN CALCIUM 25019 108677 Active Cyn Janeth Valentin PREDNISONE 20 MG TAB 2 pills at once for 2 days then 1 pill daily for 2 days PREDNISONE 90965782185 No Longer Active Cyn Rubi Valentin BIAXIN XL PAC 500 MG TB24 2 pills at same time daily for 7 days CLARITHROMYCIN 19357947002 No Longer Active Cyn Janeth Valentin KISHOR 180 MG TABS 1 PO QD FEXOFENADINE HCL No Longer Active Cynjosh Valentin ASPIRIN 81 MG TBEC 1 po daily ASPIRIN 79986184055 No Longer Active Cynjosh Valentin SIMVASTATIN 80 MG TABS 1 po daily SIMVASTATIN 16 799284272 No Longer Active Cynjosh Valentin OMEPRAZOLE 20 MG CPDR 1 po daily OMEPRAZOLE 67619 709282 No Longer Active Cynjosh Valentin METOPROLOL TARTRATE 25 MG TABS 1 PO BID METOP ROLOL TARTRATE 54835111234 Active Cynjosh Valentin PEPCID 20 MG TAB 1 PO BID FAMOTIDINE 97282688312 Acti ve Cynjosh Valentin NITROSTAT 0.4 MG SL TAB 1 pill under tongue prn ches t pain. May repeat twice then must go to ER NITROGLYCERIN 36907207321 Active Mi ndjosh Valentin IMDUR 30 MG TAB CR 1 PO daily ISOSORBIDE MONONITR ATE 88442138847 Active Cynjosh Valentin ASPIRIN 325 MG TABS 1 PO daily ASPIRIN 03015632108 Ac tive Cynjosh Valentin BENADRYL 25 MG CAP 1-2 PO QHS for allergies DIP HENHYDRAMINE HCL 65332455536 Active Cyn Janeth Valentin LIPITOR 80 MG TABS 1 PO daily ATORVASTATIN CALCIU M 38335732012 No Longer Active Cyn Janeth Barbie CARMOL [...] at night 03/26 FLONASE 50 MCG/DOSE INHALANT 67548143365 No Longer Active Cyn Adela tamela Barbie VITAMIN C 500 MG TABS 1 po daily ASCORBIC ACID 12 946171216 No Longer Active Cyn Janeth Valentin MULTIVITAMINS TABS 1 po daily MULTIPLE VITAMIN 0 7913649149 No Longer Active Cyn Janeth Valentin CLARITIN 10 MG TABS 1 po daily LORATADINE 4712899 4420 No Longer Active Cyn Janeth Valentin SIMVASTATIN 80 MG TABS 1 po daily SIMVASTATIN 8186162500 3 No Longer Active Cynjosh Valentin DILANTIN 100 MG CAPS 3 tabs po daily PHENYTOIN SOD IUM EXTENDED 39158475979 Active Veda Piedra Immunizations Vaccine Administration Date [...] 7.6 ug/mL Clinical Lists Update: CMP,FLP - Channel Sales Manager ry calcium, serum 9.0 mg/dL aspartate aminotransferase [...] blood leukocytes 3.8 % platelet count 205 044-324 8970/03/11 mean corpuscular hemoglobin, RBC 32.6 pg 27. [...] 29 mmol/L 18-30 sodium, serum 139 mmol/L 827-612 0612/03/11 sodium, serum 138 mmol/L 480-982 6955/09/03 alkaline phosphatase, serum 73 U/L 43-123 alkaline phosphatase, serum 82 U/L 43-123 aspartate aminotransferase (SGOT), serum 28 U/L 0-40 aspartate aminotransferase (SGOT), serum 22 U/L 0-40 alanine aminotransferase (SGPT), serum 26 U/L 0-40 alanine aminotransferase (SGPT), serum 23 U/L 0-40 Lab Report: CHEM 14 - Lab CREATININE 0.81 0.50-1.50 CREATININE 0.84 0.50-1.50 Lab Report: LIPID GRP - Chemistry cholesterol, serum 133 mg/dL 439-294 1306/03/11 HDL cholesterol, serum 35 mg/dL 40-125 triglyceride, serum, random 204 mg/dL 30-150 triglyceride, serum, random 166 mg/dL 30-150 HDL cholesterol, serum 41 mg/dL 40-125 cholesterol, serum 142 mg/dL 100-200 Lab Report: TSH - Chemistry thyroid stimulating hormone, serum 2.764 u[iU]/mL 0 .300-5.000 Encounters Code Encounter Date Provider Facility CPT-77163 Ofc Vst, Est Level IV 15:52:21 CDT Cyn Chapman tamela Valentin DO, FACP CPT-33956 Ofc Vst, Est Level III 11:14:55 CDT Cyn S tamela Valentin [facility] CPT-30569 Ofc Vst, Est Level IV 16:08:02 CDT Cyn Adela rapp Barbie [facility] CPT-03545 Ofc Vst, Est Level IV 15:52:39 INVESTMENT BROKER Cyn Chapman tamela Valentin [facility] CPT-25329 Ofc Vst, Est Level IV 11:10:54 CDT Cyn Chapman tamela Valentin, DO, FACP CPT-83026 Ofc Vst, Est Level IV 10:19:53 CDT Cyn Chapman tamela Valentin, DO, FACP CPT-21752 Ofc Vst, Est Level IV 10:30:27 CDT Cyn Adela Valentin, DO, FACP CPT-78987 Ofc Vst, Est Level IV 15:27:12 CDT Cyn Adela Valentin, DO, FACP CPT-17285 Ofc Vst, Est Level IV 09:52:53 INVESTMENT BROKER Cynjosh Valentin, DO, FACP CPT-93184 Ofc Vst, Est Level IV 10:01:47 CDT Cyn Adela Valentin, DO, FACP CPT-23112 Ofc Vst, Est Level IV 10:01:47 INVESTMENT BROKER Cyn Goldsmithi Gilberto Barbie, DO, FACP CPT-53695 Ofc Vst, Est Level IV 09:28:13 CDT Cyn Goldsmithi Gilberto Barbie, DO, FACP CPT-29823 Ofc Vst, Est Level IV 10:29:59 INVESTMENT BROKER Cyn Lemaner Cynjosh Valentin, DO, FACP CPT-87757 Ofc Vst, Est Level IV 14:47:20 INVESTMENT BROKER Cyn Goldsmithi Gilberto Barbie, DO, FACP CPT-93656 Ofc Vst, New Level IV 14:14:21 CDT Cyn Lemajoan Valentin, DO, FACP Procedures Code Procedure Name Date Entry Date Standard Desc ription CPT-77586 Preventive, Est, (65+) 14:26:26 CDT CPT-81664 Preventive, Est, (65+) 20:45:46 CDT CPT-56115 Preventive, Est, (65+) 15:01:19 CDT CPT-77261 Preventive, Est, (40-64) 10:39:03 CDT 05/07
--- OUTSIDE RECORDS SUMMARY | 2019-02-15 03:38 | XMS REPORT | Clinical Summary ---
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 CLOBETASOL PRO PIONATE 97840581062 No Longer Active Cyn Valentin EFFIENT 10 MG TABS 1 PO daily PRASUGREL HCL 0000 0754635 No Longer Active Cynjosh Valentin LIPITOR 80 MG TABS 1 PO daily ATORVASTATIN CALCIUM 51133 580520 Active Cyn Janeth Valentin PREDNISONE 20 MG TAB 2 pills at once for 2 days then 1 pill daily for 2 days PREDNISONE 85182230261 No Longer Active Cyn Rubi Valentin BIAXIN XL PAC 500 MG TB24 2 pills at same time daily for 7 days CLARITHROMYCIN 66205171989 No Longer Active Cyn Janeth Valentin KISHOR 180 MG TABS 1 PO QD FEXOFENADINE HCL No Longer Active Cynjosh Valentin ASPIRIN 81 MG TBEC 1 po daily ASPIRIN 42049314524 No Longer Active Cynjosh Valentin SIMVASTATIN 80 MG TABS 1 po daily SIMVASTATIN 16 253220592 No Longer Active Cynjosh Valentin OMEPRAZOLE 20 MG CPDR 1 po daily OMEPRAZOLE 87164 221127 No Longer Active Cynjosh Valentin METOPROLOL TARTRATE 25 MG TABS 1 PO BID METOP ROLOL TARTRATE 00470132514 Active Cynjosh Valentin PEPCID 20 MG TAB 1 PO BID FAMOTIDINE 96258628146 Acti ve Cynjosh Valentin NITROSTAT 0.4 MG SL TAB 1 pill under tongue prn ches t pain. May repeat twice then must go to ER NITROGLYCERIN 24120465916 Active Mi ndjosh Valentin IMDUR 30 MG TAB CR 1 PO daily ISOSORBIDE MONONITR ATE 66345961126 Active Cynjosh Valentin ASPIRIN 325 MG TABS 1 PO daily ASPIRIN 54070593036 Ac tive Cynjosh Valentin BENADRYL 25 MG CAP 1-2 PO QHS for allergies DIP HENHYDRAMINE HCL 89014426680 Active Cyn Janeth Valentin LIPITOR 80 MG TABS 1 PO daily ATORVASTATIN CALCIU M 04828123548 No Longer Active Cyn Janeth Barbie CARMOL [...] at night 03/26 FLONASE 50 MCG/DOSE INHALANT 92604076496 No Longer Active Cyn Adela tamela Barbie VITAMIN C 500 MG TABS 1 po daily ASCORBIC ACID 12 426983925 No Longer Active Cyn Janeth Valentin MULTIVITAMINS TABS 1 po daily MULTIPLE VITAMIN 0 7598952628 No Longer Active Cyn Janeth Valentin CLARITIN 10 MG TABS 1 po daily LORATADINE 6815152 6797 No Longer Active Cyn Janeth Valentin SIMVASTATIN 80 MG TABS 1 po daily SIMVASTATIN 5706826634 3 No Longer Active Cynjosh Valentin DILANTIN 100 MG CAPS 3 tabs po daily PHENYTOIN SOD IUM EXTENDED 78989185723 Active Veda Piedra Immunizations Vaccine Administration Date [...] 7.6 ug/mL Clinical Lists Update: CMP,FLP - Tester Equipment ry calcium, serum 9.0 mg/dL aspartate aminotransferase [...] blood 43.2 % 38.3-51.2 platelet count 205 518-417 2592/03/11 eosinophils as percent of blood leukocytes 3.8 [...] 0.5 mg/dL 0.1-1.3 sodium, serum 138 mmol/L 306-810 3715/09/03 sodium, serum 139 mmol/L 305-131 4050/03/11 chloride, blood 103 mmol/L 96-108 chloride, blood [...] 41 mg/dL 40-125 cholesterol, serum 133 mg/dL 418-552 5773/09/03 triglyceride, serum, random 166 mg/dL 30-150 HDL cholesterol, serum 35 mg/dL 40-125 cholesterol, serum 142 mg/dL 710-493 0279/03/11 triglyceride, serum, random 204 mg/dL 30-150 Lab Report: TSH - Chemistry thyroid stimulating hormone, serum 2.764 u[iU]/mL 0 .300-5.000 Encounters Code Encounter Date Provider Facility CPT-21698 Ofc Vst, Est Level IV 15:52:21 CDT Cyn Chapman tamela Valentin DO, FACP CPT-55870 Ofc Vst, Est Level III 11:14:55 CDT Cyn S tamela [facility] CPT-87415 Ofc Vst, Est Level IV 16:08:02 CDT Cyn Adela rapp Bar[facility] CPT-42541 Ofc Vst, Est Level IV 15:52:39 PIANO CASE [employer] Cyn Chapman tamela Valentin [facility] CPT-17706 Ofc Vst, Est Level IV 11:10:54 CDT Cyn Chapman tamela Valentin, DO, FACP CPT-68484 Ofc Vst, Est Level IV 10:19:53 CDT Cyn Chapman tamela Valentin, DO, FACP CPT-45366 Ofc Vst, Est Level IV 10:30:27 CDT Cyn Adela Valentin, DO, FACP CPT-96346 Ofc Vst, Est Level IV 15:27:12 CDT Cyn Adela Valentin, DO, FACP CPT-04246 Ofc Vst, Est Level IV 09:52:53 [employer]O CASE [employer] Cynjosh Valentin, DO, FACP CPT-65721 Ofc Vst, Est Level IV 10:01:47 CDT Cyn Adela Valentin, DO, FACP CPT-61750 Ofc Vst, Est Level IV 10:01:47 [employer]O CASE [employer] Cyn Goldsmithi Gilberto Barbie, DO, FACP CPT-50724 Ofc Vst, Est Level IV 09:28:13 CDT Cyn Goldsmithi Gilberto Barbie, DO, FACP CPT-83372 Ofc Vst, Est Level IV 10:29:59 PI[employer]O CASE MAKER Cyn Lemaner Cynjosh Valentin, DO, FACP CPT-17692 Ofc Vst, Est Level IV 14:47:20 PI[employer]O CASE MAKER Cyn Goldsmithi Gilberto Barbie, DO, FACP CPT-58848 Ofc Vst, New Level IV 14:14:21 CDT Cyn Lemajoan Valentin, DO, FACP Procedures Code Procedure Name Date Entry Date Standard Desc ription CPT-61647 Preventive, Est, (65+) 14:26:26 CDT CPT-75500 Preventive, Est, (65+) 20:45:46 CDT CPT-56885 Preventive, Est, (65+) 15:01:19 CDT CPT-30055 Preventive, Est, (40-64) 10:39:03 CDT 05/07
--- OUTSIDE RECORDS SUMMARY | 2019-02-15 03:38 | XMS REPORT | Clinical Summary ---
Author Author Zachariah mejia Organization Cyn Valentin [place], [place] [address] Phone Unavailable Allergies, Adverse Reactions, Alerts Allergy Name Reaction Description Start Date Severity Status Pr ovider No Known Allergies Issac shields Conditions or Problems Problem Name Problem Code Onset Date Status Entry Date Provider Comment Standard Description Annotate GERD 530.81 Active Cyn Valentin ESOPHAGEAL REFLUX JOSEPH'S ESOPHAGUS 530.85 Active Cyn Valentin JOSEPH'S ESOPHAGUS HYPERCHOLESTEROLEMIA 272.0 Active Cyn Valentin PURE HYPERCHOLESTEROLEMIA SEIZURE 780.3 Active Cyn Valentin CORONARY ATHEROSCLEROSIS, [place]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.01 Active Cyn Valentin 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 ELEVATED BLOOD PRESSURE WITHOUT DIAGNOSIS OF HYPERTENSION 796.2 Active Cyn Valentin ELEVATED BL OOD PRESSURE READING WITHOUT DIAGNOSIS OF HYPERTENSION FOOT PAIN, LEFT 729.5 Active Cyn Espinal er PAIN IN SOFT TISSUES OF LIMB Medication List Medication Instructions Start Date Stop Date Generic Name NDC Status Provider Patient Instruction DILANTIN 100 MG CAPS 3 tabs po daily PHENYTOIN SOD IUM EXTENDED 25243151898 Active Veda Piedra BENADRYL 25 MG CAP 1-2 PO QHS for allergies DIP HENHYDRAMINE HCL 66704333632 Active Cyn Valentin ASPIRIN 325 MG TABS 1 PO daily ASPIRIN 44480976894 Ac tive Cyn Valentin IMDUR 30 MG TAB CR 1 PO daily ISOSORBIDE MONONITR ATE 23825694913 Active Cyn Valentin NITROSTAT 0.4 MG SL TAB 1 pill under tongue prn ches t pain. May repeat twice then must go to ER NITROGLYCERIN 73792967854 Active Mi ndi Janeth Valentin PEPCID 20 MG TAB 1 PO BID FAMOTIDINE 96889339357 Acti ve Cyn Valentin METOPROLOL TARTRATE 25 MG TABS 1 PO BID METOP ROLOL TARTRATE 51051737180 Active Cyn Valentin LIPITOR 80 MG TABS 1 PO daily ATORVASTATIN CALCIUM 05454 798061 Active Cyn Valentin FISH OIL 1000 MG CAPS 3 PO daily OMEGA-3 FATTY AC IDS 77408465877 Active Cyn Valentin FLONASE 50 MCG/ACT SUSP 2 squirts each nostril daily FLUTICASONE PROPIONATE 28767193288 Active Veda Piedra Immunizations Vaccine Administration Date Value Standard Paddy cription pneumococcal immunization administered Done pneumococcal polysaccharide vaccine, 23 valent Influenza vaccine 02/03/11 influenza viru s vaccine, unspecified formulation Vital Signs Date Name Value Unit Range Description blood pressure, diastolic 74 mm[Hg] BP hensley blood pressure, systolic 136 mm[Hg] BP sys blood pressure, diastolic 78 mm[Hg] BP hensley blood pressure, systolic 160 mm[Hg] BP sys pulse rate E&M 64 /min Heart rate respiratory rate E&M 14 /min Resp rate temperature E&M 98.6 [degF] Body temp erature weight E&M 160 [lb_av] Weight Measure d blood pressure, diastolic 65 mm[Hg] BP hensley blood pressure, systolic 135 mm[Hg] BP sys pulse rate E&M 66 /min Heart rate respiratory rate E&M 14 /min Resp rate temperature E&M 98.6 [degF] Body temp erature weight E&M 161 [lb_av] Weight Measure d Diagnostic Results Date Name Value Unit Range Description Clinical Lists Update: CBC,CMP,FLP,TSH,D ilantin - Chemistry Estimated Glomerular Filtration Rate (calc) >60 mL/ min/1.73m2 LDL cholesterol, serum 62 mg/dL glucose, plasma fasting 102 mg/dL alkaline phosphatase, serum 90 U/L cholesterol/HDL ratio, serum 3.91 urea nitrogen, blood 10 mg/dL anion gap, serum 5 calcium, serum 8.9 mg/dL sodium, serum 139 mmol/L chloride, serum 104 mmol/L triglyceride, serum, fasting 202 mg/dL cholesterol, serum 137 mg/dL bilirubin, serum, total 0.4 mg/dL carbon dioxide, venous blood 30 mmol/L alanine aminotransferase (SGPT), serum 22 U/L creatinine, serum 0.78 mg/dL aspartate aminotransferase (SGOT), serum 20 U/L HDL cholesterol, serum 35 mg/dL protein, total, serum 6.5 g/dL thyroid stimulating hormone, serum 2.490 u[iU]/mL potassium, serum 4.1 mmol/L albumin, serum 4.3 g/dL Clinical Lists Update: CBC,CMP,FLP,TSH,D ilantin - Hematology hematocrit, blood 44.3 % hemoglobin, blood 15.6 g/dL platelet count 208 10*3/mm3 erythrocyte (RBC) count 4.84 10*6/mm3 leukocyte count, blood 8.3 10*3/mm3 mean corpuscular volume, RBC 91.5 fL red blood cell distribution width 12.6 % Clinical Lists Update: CBC,CMP,FLP,TSH,D ilantin - Toxicology phenytoin level, serum 9.7 ug/mL Clinical Lists Update: CMP,FLP - Solar Fabrication Technician ry potassium, serum 4.7 mmol/L triglyceride, serum, fasting 166 mg/dL cholesterol, serum 142 mg/dL sodium, serum 139 mmol/L chloride, serum 102 mmol/L anion gap, serum 9 calcium, serum 9.0 mg/dL cholesterol/HDL ratio, serum 3.46 urea nitrogen, blood 11 mg/dL glucose, plasma fasting 93 mg/dL alkaline phosphatase, serum 73 U/L Estimated Glomerular Filtration Rate (calc) >60 mL/ min/1.73m2 albumin, serum 4.4 g/dL creatinine, serum 0.84 mg/dL alanine aminotransferase (SGPT), serum 26 U/L HDL cholesterol, serum 101 mg/dL aspartate aminotransferase (SGOT), serum 28 U/L protein, total, serum 7.3 g/dL LDL cholesterol, serum 68 mg/dL bilirubin, serum, total 0.5 mg/dL carbon dioxide, venous blood 28 mmol/L Lab Report: CBC - Chemistry basophils, absolute, manual 0.01 10E9/L {Cells}/uL 0.00-0. 20 eosinophils, absolute, manual 0.26 10E9/L {Cells}/uL 0.00- 0.45 monocytes, absolute, manual 0.99 10E9/L {Cells}/uL 0.20-1. 00 lymphocytes, absolute, manual 2.03 10E9/L {Cells}/uL 1.00- 4.00 polymorphonuclear neutrophils, absolute, manual 5.01 10E9/L {Cells}/uL 1.80-7.80 mean corpuscular hemoglobin concentration, rbc 35.2 g/dL 31.6-35.5 Lab Report: CBC - Hematology hemoglobin, blood 15.6 g/dL 12.5-17.3 hematocrit, blood 44.3 % 38.3-51.2 mean corpuscular volume, RBC 91.5 fL 83.7-99 .8 eosinophils as percent of blood leukocytes 3.1 % mean corpuscular hemoglobin, RBC 32.2 pg 27. 6-33.8 monocytes as percent of blood leukocytes 11.9 % mean platelet volume 10.9 fL 9.5-12.8 lymphocytes as percent of blood leukocytes, manual count 2 4.5 % neutrophil count, CSF 60.4 % basophils as percent of blood leukocytes, automated count 0.1 % platelet count 208 146-367 Lab Report: CHEM 14 - Chemistry alanine aminotransferase (SGPT), serum 26 U/L 0-40 protein total, urine 6.5 GM/DL 6.5-8.2 aspartate aminotransferase (SGOT), serum 28 U/L 0-40 potassium, serum 4.1 mmol/L 3.5-5.5 potassium, serum 4.7 mmol/L 3.5-5.5 calcium, serum 8.9 mg/dL 8.5-10.5 calcium, serum 9.0 mg/dL 8.5-10.5 urea nitrogen, blood 10 mg/dL 5-25 urea nitrogen, blood 11 mg/dL 5-25 blood glucose, random 102 mg/dL 70-100 blood glucose, random 93 mg/dL 70-100 alkaline phosphatase, serum 90 U/L 43-123 alkaline phosphatase, serum 73 U/L 43-123 albumin, serum 4.3 g/dL 3.9-4.9 albumin, serum 4.4 g/dL 3.9-4.9 alanine aminotransferase (SGPT), serum 22 U/L 0-40 bilirubin, serum, total 0.5 mg/dL 0.1-1.3 bilirubin, serum, total 0.4 mg/dL 0.1-1.3 sodium, serum 139 mmol/L 870-815 6805/03/10 sodium, serum 139 mmol/L 276-724 7385/09/03 chloride, blood 102 mmol/L 96-108 chloride, blood 104 mmol/L 96-108 bicarbonate, serum 28 mmol/L 18-30 bicarbonate, serum 30 mmol/L 18-30 protein total, urine 7.3 GM/DL 6.5-8.2 aspartate aminotransferase (SGOT), serum 20 U/L 0-40 Lab Report: CHEM 14 - Lab CREATININE 0.78 0.50-1.50 CREATININE 0.84 0.50-1.50 Lab Report: LIPID GRP - Chemistry triglyceride, serum, random 202 mg/dL 30-150 triglyceride, serum, random 166 mg/dL 30-150 HDL cholesterol, serum 35 mg/dL 40-125 cholesterol, serum 142 mg/dL 715-384 1105/09/03 HDL cholesterol, serum 41 mg/dL 40-125 cholesterol, serum 137 mg/dL 100-200 Lab Report: TSH - Chemistry thyroid stimulating hormone, serum 2.490 u[iU]/mL 0 .300-5.000
--- OUTSIDE RECORDS SUMMARY | 2019-02-15 03:38 | XMS REPORT | Clinical Summary ---
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 May repeat twice then must go to ER NITROGLYCERIN 00196239811 Active Mi ndi Janeth Valentin PEPCID 20 MG TAB 1 PO BID FAMOTIDINE 58454347477 Acti ve Cyn Valentin METOPROLOL TARTRATE 25 MG TABS 1 PO BID METOP ROLOL TARTRATE 85907486734 Active Cyn Valentin LIPITOR 80 MG TABS 1 PO daily ATORVASTATIN CALCIUM 05311 723045 Active Cyn Valentin FISH OIL 1000 MG CAPS 3 PO daily OMEGA-3 FATTY AC IDS 86857595462 Active Cyn Valentin FLONASE 50 MCG/ACT SUSP 2 squirts each nostril daily FLUTICASONE PROPIONATE 80867698595 Active Veda Piedra Immunizations Vaccine Administration Date [...] 9.7 ug/mL Clinical Lists Update: CMP,FLP - Straight Ruling Machine Operator ry potassium, serum 4.7 mmol/L triglyceride, serum, [...] 0.4 mg/dL 0.1-1.3 sodium, serum 139 mmol/L 547-688 8144/03/10 sodium, serum 139 mmol/L 968-949 0210/09/03 chloride, blood 102 mmol/L 96-108 chloride, blood [...] 35 mg/dL 40-125 cholesterol, serum 142 mg/dL 663-725 8296/09/03 HDL cholesterol, serum 41 mg/dL 40-125 cholesterol, serum 137 mg/dL 100-200 Lab Report: TSH - Chemistry thyroid stimulating hormone, serum 2.490 u[iU]/mL 0 .300-5.000
--- OUTSIDE RECORDS SUMMARY | 2019-02-15 03:38 | XMS REPORT | Clinical Summary ---
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 CLOBETASOL PRO PIONATE 01025914967 No Longer Active Cyn Valentin EFFIENT 10 MG TABS 1 PO daily PRASUGREL HCL 0000 1822252 No Longer Active Cynjosh Valentin LIPITOR 80 MG TABS 1 PO daily ATORVASTATIN CALCIUM 56927 961954 Active Cyn Janeth Valentni PREDNISONE 20 MG TAB 2 pills at once for 2 days then 1 pill daily for 2 days PREDNISONE 06777257996 No Longer Active Cyn Rubi Valentin BIAXIN XL PAC 500 MG TB24 2 pills at same time daily for 7 days CLARITHROMYCIN 61812111039 No Longer Active Cyn Janeth Valentin KISHOR 180 MG TABS 1 PO QD FEXOFENADINE HCL No Longer Active Cynjosh Valentin ASPIRIN 81 MG TBEC 1 po daily ASPIRIN 34353627461 No Longer Active Cynjosh Valentin SIMVASTATIN 80 MG TABS 1 po daily SIMVASTATIN 16 098240485 No Longer Active Cynjosh Valentin OMEPRAZOLE 20 MG CPDR 1 po daily OMEPRAZOLE 44874 373904 No Longer Active Cynjosh Valentin METOPROLOL TARTRATE 25 MG TABS 1 PO BID METOP ROLOL TARTRATE 42633844662 Active Cynjosh Valentin PEPCID 20 MG TAB 1 PO BID FAMOTIDINE 86118912233 Acti ve Cynjosh Valentin NITROSTAT 0.4 MG SL TAB 1 pill under tongue prn ches t pain. May repeat twice then must go to ER NITROGLYCERIN 89476886700 Active Mi ndjosh Valentin IMDUR 30 MG TAB CR 1 PO daily ISOSORBIDE MONONITR ATE 67427377475 Active Cynjosh Valentin ASPIRIN 325 MG TABS 1 PO daily ASPIRIN 28302198561 Ac tive Cynjosh Valentin BENADRYL 25 MG CAP 1-2 PO QHS for allergies DIP HENHYDRAMINE HCL 36111838705 Active Cyn Janeth Valentin LIPITOR 80 MG TABS 1 PO daily ATORVASTATIN CALCIU M 31384199418 No Longer Active Cyn Janeth Barbie CARMOL 40% UREA LOTION Apply to affected area twice daily fo r two weeks CARMOL 40% UREA LOTION No Longer Active M pamela Janeth Barbie [place] IN [place] Apply to affected areas twice daily for two weeks [place] IN [place] No Longer Active Ycn Michelle tesfaye Barbie FLONASE 50 MCG/DOSE INHALANT 2 puffs each nostril at night 03/26 FLONASE 50 MCG/DOSE INHALANT 93026993088 No Longer Active Cyn Adela tamela Barbie VITAMIN C 500 MG TABS 1 po daily ASCORBIC ACID 12 490921563 No Longer Active Cyn Janeth Valentni MULTIVITAMINS TABS 1 po daily MULTIPLE VITAMIN 0 9100624258 No Longer Active Cyn Janeth Valentin CLARITIN 10 MG TABS 1 po daily LORATADINE 0576748 3837 No Longer Active Cyn Janeth Valentin SIMVASTATIN 80 MG TABS 1 po daily SIMVASTATIN 4824677860 3 No Longer Active Cynjosh Valentin DILANTIN 100 MG CAPS 3 tabs po daily PHENYTOIN SOD IUM EXTENDED 29241795961 Active Veda Piedra Immunizations Vaccine Administration Date [...] 7.6 ug/mL Clinical Lists Update: CMP,FLP - Oracle Adf Developer ry calcium, serum 9.0 mg/dL aspartate aminotransferase [...] blood 43.2 % 38.3-51.2 platelet count 205 221-917 0410/03/11 eosinophils as percent of blood leukocytes 3.8 [...] 0.5 mg/dL 0.1-1.3 sodium, serum 138 mmol/L 356-032 8964/09/03 sodium, serum 139 mmol/L 649-217 7634/03/11 chloride, blood 103 mmol/L 96-108 chloride, blood [...] 41 mg/dL 40-125 cholesterol, serum 133 mg/dL 399-462 2267/09/03 triglyceride, serum, random 166 mg/dL 30-150 HDL cholesterol, serum 35 mg/dL 40-125 cholesterol, serum 142 mg/dL 108-999 1680/03/11 triglyceride, serum, random 204 mg/dL 30-150 Lab Report: TSH - Chemistry thyroid stimulating hormone, serum 2.764 u[iU]/mL 0 .300-5.000 Encounters Code Encounter Date Provider Facility CPT-03722 Ofc Vst, Est Level IV 15:52:21 CDT Cyn Chapman tamela Valentin DO, FACP CPT-62190 Ofc Vst, Est Level III 11:14:55 CDT Cyn S tamela Barbie [facility] CPT-20857 Ofc Vst, Est Level IV 16:08:02 CDT Cyn Adela rapp Bar[facility] CPT-64265 Ofc Vst, Est Level IV 15:52:39 PRODUCTION BOW MAKER Cyn Chapman tamela Valentin [facility] CPT-10901 Ofc Vst, Est Level IV 11:10:54 CDT Cyn Chapman tamela Valentin, DO, FACP CPT-51525 Ofc Vst, Est Level IV 10:19:53 CDT Cyn Chapman tamela Valentin, DO, FACP CPT-68298 Ofc Vst, Est Level IV 10:30:27 CDT Cyn Adela Valentin, DO, FACP CPT-31310 Ofc Vst, Est Level IV 15:27:12 CDT Cyn Adela Valentin, DO, FACP CPT-62154 Ofc Vst, Est Level IV 09:52:53 PRODUCTION BOW MAKER Cynjosh Valentin, DO, FACP CPT-75079 Ofc Vst, Est Level IV 10:01:47 CDT Cyn Adela Valenitn, DO, FACP CPT-45878 Ofc Vst, Est Level IV 10:01:47 PRODUCTION BOW MAKER Cyn Goldsmithi Gilberto Barbie, DO, FACP CPT-97529 Ofc Vst, Est Level IV 09:28:13 CDT Cyn Goldsmithi Gilberto Barbie, DO, FACP CPT-84949 Ofc Vst, Est Level IV 10:29:59 PRODUCTION BOW MAKER Cyn Lemaner Cynjosh Valentin, DO, FACP CPT-21362 Ofc Vst, Est Level IV 14:47:20 PRODUCTION BOW MAKER Cyn Goldsmithi Gilberto Barbie, DO, FACP CPT-88110 Ofc Vst, New Level IV 14:14:21 CDT Cyn Lemajoan Valentin, DO, FACP Procedures Code Procedure Name Date Entry Date Standard Desc ription CPT-41216 Preventive, Est, (65+) 14:26:26 CDT CPT-57287 Preventive, Est, (65+) 20:45:46 CDT CPT-37080 Preventive, Est, (65+) 15:01:19 CDT CPT-65542 Preventive, Est, (40-64) 10:39:03 CDT 05/07
--- OUTSIDE RECORDS SUMMARY | 2019-02-15 03:38 | XMS REPORT | Clinical Summary ---
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 CLOBETASOL PRO PIONATE 26327123530 No Longer Active Cyn Valentin EFFIENT 10 MG TABS 1 PO daily PRASUGREL HCL 0000 2234371 No Longer Active Cynjosh Valentin LIPITOR 80 MG TABS 1 PO daily ATORVASTATIN CALCIUM 81019 451733 Active Cyn Janeth Valentin PREDNISONE 20 MG TAB 2 pills at once for 2 days then 1 pill daily for 2 days PREDNISONE 46743415940 No Longer Active Cyn Rubi Valentin BIAXIN XL PAC 500 MG TB24 2 pills at same time daily for 7 days CLARITHROMYCIN 22768456606 No Longer Active Cyn Janeth Valentin KISHOR 180 MG TABS 1 PO QD FEXOFENADINE HCL No Longer Active Cynjosh Valentin ASPIRIN 81 MG TBEC 1 po daily ASPIRIN 11575313527 No Longer Active Cynjosh Valentin SIMVASTATIN 80 MG TABS 1 po daily SIMVASTATIN 16 650538116 No Longer Active Cynjosh Valentin OMEPRAZOLE 20 MG CPDR 1 po daily OMEPRAZOLE 90930 328369 No Longer Active Cynjosh Valentin METOPROLOL TARTRATE 25 MG TABS 1 PO BID METOP ROLOL TARTRATE 20340769067 Active Cynjosh Valentin PEPCID 20 MG TAB 1 PO BID FAMOTIDINE 21413585274 Acti ve Cynjosh Valentin NITROSTAT 0.4 MG SL TAB 1 pill under tongue prn ches t pain. May repeat twice then must go to ER NITROGLYCERIN 85191426080 Active Mi ndjosh Valentin IMDUR 30 MG TAB CR 1 PO daily ISOSORBIDE MONONITR ATE 45461016579 Active Cynjosh Valentin ASPIRIN 325 MG TABS 1 PO daily ASPIRIN 56884926973 Ac tive Cynjosh Valentin BENADRYL 25 MG CAP 1-2 PO QHS for allergies DIP HENHYDRAMINE HCL 11472228106 Active Cyn Janeth Valentin LIPITOR 80 MG TABS 1 PO daily ATORVASTATIN CALCIU M 05989910560 No Longer Active Cyn Janeth Barbie CARMOL [...] at night 03/26 FLONASE 50 MCG/DOSE INHALANT 09599476444 No Longer Active Cyn Adela tamela Barbie VITAMIN C 500 MG TABS 1 po daily ASCORBIC ACID 12 520947095 No Longer Active Cyn Janeth Valentin MULTIVITAMINS TABS 1 po daily MULTIPLE VITAMIN 0 6197610775 No Longer Active Cyn Janeth Valentin CLARITIN 10 MG TABS 1 po daily LORATADINE 7498021 2774 No Longer Active Cyn Janeth Valentin SIMVASTATIN 80 MG TABS 1 po daily SIMVASTATIN 4904246749 3 No Longer Active Cynjosh Valentin DILANTIN 100 MG CAPS 3 tabs po daily PHENYTOIN SOD IUM EXTENDED 30617320020 Active Veda Piedra Immunizations Vaccine Administration Date [...] 7.6 ug/mL Clinical Lists Update: CMP,FLP - Insurance Biller ry calcium, serum 9.0 mg/dL aspartate aminotransferase [...] blood 43.2 % 38.3-51.2 platelet count 205 683-594 4922/03/11 eosinophils as percent of blood leukocytes 3.8 [...] 0.5 mg/dL 0.1-1.3 sodium, serum 138 mmol/L 536-882 8018/09/03 sodium, serum 139 mmol/L 161-590 3692/03/11 chloride, blood 103 mmol/L 96-108 chloride, blood [...] 41 mg/dL 40-125 cholesterol, serum 133 mg/dL 386-136 0434/09/03 triglyceride, serum, random 166 mg/dL 30-150 HDL cholesterol, serum 35 mg/dL 40-125 cholesterol, serum 142 mg/dL 762-480 5470/03/11 triglyceride, serum, random 204 mg/dL 30-150 Lab Report: TSH - Chemistry thyroid stimulating hormone, serum 2.764 u[iU]/mL 0 .300-5.000 Encounters Code Encounter Date Provider Facility CPT-98927 Ofc Vst, Est Level IV 15:52:21 CDT Cyn Chapman tamela Valentin DO, FACP CPT-09308 Ofc Vst, Est Level III 11:14:55 CDT Cyn S tamela Barbie [facility] CPT-16258 Ofc Vst, Est Level IV 16:08:02 CDT Cyn Adela rapp Barbie [facility] CPT-73756 Ofc Vst, Est Level IV 15:52:39 SUPERVISOR 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 Cyn Chapman tamela Valentin [facility] CPT-53150 Ofc Vst, Est Level IV 11:10:54 CDT Cyn Chapman tamela Valentin, DO, FACP CPT-50446 Ofc Vst, Est Level IV 10:19:53 CDT Cyn Chapman tamela Valentin, DO, FACP CPT-96639 Ofc Vst, Est Level IV 10:30:27 CDT Cyn Adela Valentin, DO, FACP CPT-47499 Ofc Vst, Est Level IV 15:27:12 CDT Cyn Adela Valentin, DO, FACP CPT-44803 Ofc Vst, Est Level IV 09:52:53 SUPERVISOR 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 Cynjosh Valentin, DO, FACP CPT-88750 Ofc Vst, Est Level IV 10:01:47 CDT Cyn Adela Valentin, DO, FACP CPT-72168 Ofc Vst, Est Level IV 10:01:47 SUPERVISOR 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 Cyn Goldsmithi Gilberto Barbie, DO, FACP CPT-05490 Ofc Vst, Est Level IV 09:28:13 CDT Cyn Goldsmithi Gilberto Barbie, DO, FACP CPT-45700 Ofc Vst, Est Level IV 10:29:59 SUPERVISOR 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 Cyn Lemaner Cynjosh Valentin, DO, FACP CPT-31222 Ofc Vst, Est Level IV 14:47:20 SUPERVISOR 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 Cyn Goldsmithi Gilberto Barbie, DO, FACP CPT-66587 Ofc Vst, New Level IV 14:14:21 CDT Cyn Lemajoan Valentin, DO, FACP Procedures Code Procedure Name Date Entry Date Standard Desc ription CPT-43635 Preventive, Est, (65+) 14:26:26 CDT CPT-95096 Preventive, Est, (65+) 20:45:46 CDT CPT-97797 Preventive, Est, (65+) 15:01:19 CDT CPT-14909 Preventive, Est, (40-64) 10:39:03 CDT 05/07
--- OUTSIDE RECORDS SUMMARY | 2019-02-15 03:39 | XMS REPORT | Clinical Summary ---
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 May repeat twice then must go to ER NITROGLYCERIN 34078124573 Active Mi ndi Janeth Valentin PEPCID 20 MG TAB 1 PO BID FAMOTIDINE 44184411066 Acti ve Cyn Valentin METOPROLOL TARTRATE 25 MG TABS 1 PO BID METOP ROLOL TARTRATE 11356976609 Active Cyn Valentin LIPITOR 80 MG TABS 1 PO daily ATORVASTATIN CALCIUM 90933 538475 Active Cyn Valentin FISH OIL 1000 MG CAPS 3 PO daily OMEGA-3 FATTY AC IDS 59062354316 Active Cyn Valentin FLONASE 50 MCG/ACT SUSP 2 squirts each nostril daily FLUTICASONE PROPIONATE 67990971544 Active Veda Piedra Immunizations Vaccine Administration Date [...] 9.7 ug/mL Clinical Lists Update: CMP,FLP - Signal Intelligence/Electronic Warfare ry potassium, serum 4.7 mmol/L triglyceride, serum, [...] 0.4 mg/dL 0.1-1.3 sodium, serum 139 mmol/L 805-987 3923/03/10 sodium, serum 139 mmol/L 332-343 4977/09/03 chloride, blood 102 mmol/L 96-108 chloride, blood [...] 35 mg/dL 40-125 cholesterol, serum 142 mg/dL 163-212 8116/09/03 HDL cholesterol, serum 41 mg/dL 40-125 cholesterol, serum 137 mg/dL 100-200 Lab Report: TSH - Chemistry thyroid stimulating hormone, serum 2.490 u[iU]/mL 0 .300-5.000
--- OUTSIDE RECORDS SUMMARY | 2019-02-15 03:39 | XMS REPORT | Clinical Summary ---
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 May repeat twice then must go to ER NITROGLYCERIN 36045139090 Active Mi ndi Janeth Valentin PEPCID 20 MG TAB 1 PO BID FAMOTIDINE 62943959029 Acti ve Cyn Valentin METOPROLOL TARTRATE 25 MG TABS 1 PO BID METOP ROLOL TARTRATE 99099264096 Active Cyn Valentin LIPITOR 80 MG TABS 1 PO daily ATORVASTATIN CALCIUM 77863 464406 Active Cyn Valentin FISH OIL 1000 MG CAPS 3 PO daily OMEGA-3 FATTY AC IDS 22707443828 Active Cyn Valentin FLONASE 50 MCG/ACT SUSP 2 squirts each nostril daily FLUTICASONE PROPIONATE 61576709833 Active Veda Piedra Immunizations Vaccine Administration Date [...] 9.7 ug/mL Clinical Lists Update: CMP,FLP - Statistical Modeler ry potassium, serum 4.7 mmol/L triglyceride, serum, [...] 0.4 mg/dL 0.1-1.3 sodium, serum 139 mmol/L 828-453 9808/03/10 sodium, serum 139 mmol/L 608-442 3913/09/03 chloride, blood 102 mmol/L 96-108 chloride, blood [...] 35 mg/dL 40-125 cholesterol, serum 142 mg/dL 227-228 0717/09/03 HDL cholesterol, serum 41 mg/dL 40-125 cholesterol, serum 137 mg/dL 100-200 Lab Report: TSH - Chemistry thyroid stimulating hormone, serum 2.490 u[iU]/mL 0 .300-5.000
--- OUTSIDE RECORDS SUMMARY | 2019-02-15 03:39 | XMS REPORT | Clinical Summary ---
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 May repeat twice then must go to ER NITROGLYCERIN 15981419821 Active Mi ndi Janeth Valentin PEPCID 20 MG TAB 1 PO BID FAMOTIDINE 47218106025 Acti ve Cyn Valentin METOPROLOL TARTRATE 25 MG TABS 1 PO BID METOP ROLOL TARTRATE 86955902857 Active Cyn Valentin LIPITOR 80 MG TABS 1 PO daily ATORVASTATIN CALCIUM 41559 452530 Active Cyn Valentin FISH OIL 1000 MG CAPS 3 PO daily OMEGA-3 FATTY AC IDS 68975420853 Active Cyn Valentin FLONASE 50 MCG/ACT SUSP 2 squirts each nostril daily FLUTICASONE PROPIONATE 01871220278 Active Veda Piedra Immunizations Vaccine Administration Date [...] 9.7 ug/mL Clinical Lists Update: CMP,FLP - Geographic Information Scientist ry potassium, serum 4.7 mmol/L triglyceride, serum, [...] 0.4 mg/dL 0.1-1.3 sodium, serum 139 mmol/L 281-431 1543/03/10 sodium, serum 139 mmol/L 934-721 2507/09/03 chloride, blood 102 mmol/L 96-108 chloride, blood [...] 35 mg/dL 40-125 cholesterol, serum 142 mg/dL 807-946 4978/09/03 HDL cholesterol, serum 41 mg/dL 40-125 cholesterol, serum 137 mg/dL 100-200 Lab Report: TSH - Chemistry thyroid stimulating hormone, serum 2.490 u[iU]/mL 0 .300-5.000
--- OUTSIDE RECORDS SUMMARY | 2019-02-15 03:39 | XMS REPORT | Clinical Summary ---
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 May repeat twice then must go to ER NITROGLYCERIN 11698305217 Active Mi ndi Janeth Valentin PEPCID 20 MG TAB 1 PO BID FAMOTIDINE 30251110769 Acti ve Cyn Valentin METOPROLOL TARTRATE 25 MG TABS 1 PO BID METOP ROLOL TARTRATE 27601528334 Active Cyn Valentin LIPITOR 80 MG TABS 1 PO daily ATORVASTATIN CALCIUM 49601 386184 Active Cyn Valentin FISH OIL 1000 MG CAPS 3 PO daily OMEGA-3 FATTY AC IDS 40149791973 Active Cyn Valentin FLONASE 50 MCG/ACT SUSP 2 squirts each nostril daily FLUTICASONE PROPIONATE 89738427927 Active Veda Piedra Immunizations Vaccine Administration Date [...] 9.7 ug/mL Clinical Lists Update: CMP,FLP - Automatic Line Set Up Mechanic ry potassium, serum 4.7 mmol/L triglyceride, serum, [...] 0.4 mg/dL 0.1-1.3 sodium, serum 139 mmol/L 296-965 2064/03/10 sodium, serum 139 mmol/L 461-506 2988/09/03 chloride, blood 102 mmol/L 96-108 chloride, blood [...] 35 mg/dL 40-125 cholesterol, serum 142 mg/dL 177-453 3336/09/03 HDL cholesterol, serum 41 mg/dL 40-125 cholesterol, serum 137 mg/dL 100-200 Lab Report: TSH - Chemistry thyroid stimulating hormone, serum 2.490 u[iU]/mL 0 .300-5.000
--- OUTSIDE RECORDS SUMMARY | 2019-02-15 03:39 | XMS REPORT | Continuity of Care Document ---
Author Organization Unknown Address Unknown Phone Unavailable Allergies Active Description Code Type Severity Reaction Onset Reported/Identified Relationship to Patient Clinical Status Yes No Known Drug Allergies [id number] Drug Allergy Unknown N/A 01/17/2019 Medications There is no data. Problems Date Dx Coded Attending Type Code Diagnosis Diagnosed By 08/02/2010 Ot 272.4 08/02/2010 Ot 345.90 08/02/2010 Ot 414.01 08/02/2010 Ot 414.2 08/02/2010 Ot 477.9 08/02/2010 Ot 530.85 08/02/2010 Ot 531.90 08/02/2010 Ot V15.82 08/02/2010 Ot V58.66 08/02/2010 Ot V58.69 09/26/2010 Ot 414.01 09/26/2010 Ot V58.66 09/26/2010 Ot V58.69 09/26/2010 Ot V64.1 11/10/2014 Ot 414.9 11/10/2014 Ot 785.1 11/10/2014 Ot 786.59 11/10/2014 Ot 414.00 11/10/2014 Ot 486 11/10/2014 DARRIAN MORRIS Ot 272.4 11/10/2014 DARRIAN MORRIS Ot 401.9 11/10/2014 DARRIAN MORRIS Ot 414.00 11/10/2014 DARRIAN MORRIS Ot 424.0 11/10/2014 DARRIAN MORRIS Ot 429.3 11/10/2014 DARRIAN MORRIS Ot 272.4 11/10/2014 DARRIAN MORRIS Ot 401.9 11/10/2014 DARRIAN MORRIS Ot 414.01 11/20/2014 DARRIAN MORRIS Ot 272.4 11/20/2014 DARRIAN MORRIS Ot 345.90 11/20/2014 EMMANUEL PA, DARRIAN K Ot 401.9 11/20/2014 EMMANUEL PA, DARRIAN K Ot 414.9 12/09/2015 EMMANUEL PA, DARRIAN K Ot E78.2 MIXED HYPERLIPIDEMIA 12/09/2015 EMMANUEL PA, DARRIAN K Ot G40.89 OTHER SEIZURES 12/09/2015 EMMANUEL PA, DARRIAN K Ot I10 ESSENTIAL (PRIMARY) HYPERTENSION 12/09/2015 EMMANUEL PA, DARRIAN K Ot I25.10 ATHSCL HEART DISEASE OF [place] CORONARY 12/13/2015 EMMANUEL PA, DARRIAN K Ot E78.2 MIXED HYPERLIPIDEMIA 12/13/2015 EMMANUEL LEHMAN, DARRIAN K Ot G40.89 OTHER SEIZURES 12/13/2015 EMMANUEL PA, DARRIAN K Ot I10 ESSENTIAL (PRIMARY) HYPERTENSION 12/13/2015 EMMANUEL LEHMAN, DARRIAN K Ot I25.10 ATHSCL HEART DISEASE OF [place] CORONARY 12/14/2015 EMMANUEL PA, DARRIAN K Ot E78.2 MIXED HYPERLIPIDEMIA 12/14/2015 EMMANUEL PA, DARRIAN K Ot G40.89 OTHER SEIZURES 12/14/2015 EMMANUEL PA, DARRIAN K Ot I10 ESSENTIAL (PRIMARY) HYPERTENSION 12/14/2015 EMMANUEL LEHMAN, DARRIAN K Ot I25.10 ATHSCL HEART DISEASE OF [place] CORONARY 12/15/2015 EMMANUEL LEHMAN, DARRIAN K Ot E78.2 MIXED HYPERLIPIDEMIA 12/15/2015 EMMANUEL PA, DARRIAN K Ot G40.89 OTHER SEIZURES 12/15/2015 EMMANUEL PA, DARRIAN K Ot I10 ESSENTIAL (PRIMARY) HYPERTENSION 12/15/2015 EMMANUEL PA, DARRIAN K Ot I25.10 ATHSCL HEART DISEASE OF [place] CORONARY 12/22/2015 EMMANUEL PA, DARRIAN K Ot E78.2 MIXED HYPERLIPIDEMIA 12/22/2015 EMMANUEL PA, DARRIAN K Ot G40.89 OTHER SEIZURES 12/22/2015 EMMANUEL PA, DARRIAN K Ot I10 ESSENTIAL (PRIMARY) HYPERTENSION 12/22/2015 EMMANUEL LEHMAN, DARRIAN K Ot I25.10 ATHSCL HEART DISEASE OF [place] CORONARY 12/22/2015 DARRIAN MORRIS Ot E78.2 MIXED HYPERLIPIDEMIA 12/22/2015 DARRIAN MORRIS Ot G40.89 OTHER SEIZURES 12/22/2015 DARRIAN MORRIS Ot I10 ESSENTIAL (PRIMARY) HYPERTENSION 12/22/2015 DARRIAN MORRIS Ot I25.10 ATHSCL HEART DISEASE OF [place] CORONARY 12/11/2018 DARRIAN MORRIS Ot E78.5 HYPERLIPIDEMIA, UNSPECIFIED 12/11/2018 DARRIAN MORRIS Ot G40.909 EPILEPSY, UNSP, NOT INTRACTABLE, WITHOUT 12/11/2018 DARRIAN MORRIS Ot I10 ESSENTIAL (PRIMARY) HYPERTENSION 12/11/2018 DARRIAN MORRIS Ot I25.10 ATHSCL HEART DISEASE OF [place] CORONARY 01/21/2019 ANI QUICK DO Ot Z01.818 ENCOUNTER FOR OTHER PREPROCEDURAL EXAMIN 01/21/2019 ANI QUICK DO Ot Z01.818 ENCOUNTER FOR OTHER PREPROCEDURAL EXAMIN 01/29/2019 ANI QUICK DO Ot D12. 8 BENIGN NEOPLASM OF RECTUM 01/29/2019 ANI QUICK DO Ot E78. 5 HYPERLIPIDEMIA, UNSPECIFIED 01/29/2019 ANI QUICK DO Ot G40.909 EPILEPSY, UNSP, NOT INTRACTABLE, WITHOUT 01/29/2019 ANI QUICK DO Ot I10 ESSENTIAL (PRIMARY) HYPERTENSION 01/29/2019 ANI QUICK DO Ot I25. 10 ATHSCL HEART DISEASE OF [place] CORONARY 01/29/2019 ANI QUICK DO Ot K21. 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 30 DVRTCLOS OF LG INT W/O PERFORATION OR AB 01/29/2019 ANI QUICK DO Ot K60. 2 ANAL FISSURE, UNSPECIFIED 01/29/2019 ANI QUICK DO Ot K62. 1 RECTAL POLYP 01/29/2019 QUICK ANI HAYS Ot Z79. 02 USP (CURRENT) USE OF ANTITHROMBOTI 01/29/2019 ANI QUICK DO Ot Z79. 82 USP (CURRENT) USE OF ASPIRIN 01/29/2019 QUICK ANI HAYS Ot Z79.899 OTHER USP (CURRENT) DRUG THERAPY 01/29/2019 ANI QUICK DO Ot Z82. 49 FAMILY HX OF ISCHEM HEART DIS AND OTH DI 01/29/2019 ANI QUICK DO Ot Z83. 3 FAMILY HISTORY OF DIABETES MELLITUS 01/29/2019 QUICK ANI HAYS Ot Z87.891 PERSONAL HISTORY OF NICOTINE DEPENDENCE 01/29/2019 ANI QUICK DO Ot Z90. 89 ACQUIRED ABSENCE OF OTHER ORGANS Procedures There is no data. Results Test Result Range Comprehensive metabolic panel - 11/25/18 08:22 Serum or plasma sodium measurement (moles/volume) 137 mmol/L 135-145 Serum or plasma potassium measurement (moles/volume) 3.9 mmol/L 3.6-5.0 Serum or plasma chloride measurement (moles/volume) 104 mmol/L 98-107 Carbon dioxide 26 mmol/L 21-32 Serum or plasma anion gap determination (moles/volume) 7 mmol/L 5-14 Serum or plasma urea nitrogen measurement (mass/volume ) 12 mg/dL 7-18 Serum or plasma creatinine measurement (mass/volume) 0.88 mg/dL 0.60-1.30 Serum or plasma urea nitrogen/creatinine mass ratio 14 NRG Serum or plasma creatinine measurement w ith calculation of estimated glomerular filtration rate > NRG Serum or plasma glucose measurement (mass/volume) 106 mg/dL 70-105 Serum or plasma calcium measurement (mass/volume) 8.3 mg/dL 8.5-10.1 Serum or plasma total bilirubin measurement (mass/volu me) 0.4 mg/dL 0.1-1.0 Serum or plasma alkaline phosphatase moira surement (enzymatic activity/volume) 103 U/L 40-136 Serum or plasma aspartate aminotransfera se measurement (enzymatic activity/volume) 20 U/L 5-34 Serum or plasma alanine aminotransferase measurement (enzymatic activity/volume) 27 U/L 0-55 Serum or plasma protein measurement (mass/volume) 7.2 g/dL 6.4-8.2 Serum or plasma albumin measurement (mass/volume) 4.2 g/dL 3.2-4.5 CALCIUM CORRECTED 8.1 mg/dL 8.5-10.1 Encounters ACCT No. Visit Date/Time Discharge Status Pt. Type Provider Facility Loc./Unit Complaint [id number] 01/21/2019 07:53:00 09:50:00 DIS Outpatient ANI QUICK DO [facility] ENDO BLOOD IN STOOLS [id number] 01/17/2019 05:33:00 12:20:00 DIS Outpatient QUICK ANI HAYS [facility] PREOP COLONOSCOPY [id number] 11/25/2018 08:04:00 23:59:59 CLS Outpatient DAX MORRIS [facility] CARD CAD,HTN. [id number] 11/05/2018 12:11:00 23:59:59 CLS Preadmit DARRIAN MORRIS [facility] CARD CAD,HTN [id number] 12/10/2015 09:12:00 23:59:59 CLS Outpatient DAX MORRIS [facility] CARD CAD,HTN,HLP ,SEIZURE DISORDER [id number] 12/08/2015 07:52:00 016 23:59:59 CLS Outpatient DAX MORRIS [facility] CARD CAD,HTN,HLP ,SEIZURE DISORDER [id number] 11/10/2014 08:08:00 23:59:59 CLS Outpatient DAX MORRIS [facility] CARD [id number] 09/09/2012 07:06:00 23:59:59 CLS Outpatient DAX MORRIS [facility] RAD [id number] 08/30/2012 08:22:00 23:59:59 CLS Outpatient DAX MORRIS [facility] CARD [id number] 11/10/2014 08:08:00 Document Registration [id number] 11/10/2014 08:08:00 Document Registration [id number] 11/10/2014 08:07:00 Document Registration [id number] 02/03/2011 17:06:00 Document Registration [id number] 07/22/2010 07:11:00 Document Registration [email or web address] 11/10/2014 08:08:58 ACT Document Registration
--- OUTSIDE RECORDS SUMMARY | 2019-02-15 03:39 | XMS REPORT | Clinical Summary ---
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 May repeat twice then must go to ER NITROGLYCERIN 06047712808 Active Mi ndi Janeth Valentin PEPCID 20 MG TAB 1 PO BID FAMOTIDINE 84841288429 Acti ve Cyn Valentin METOPROLOL TARTRATE 25 MG TABS 1 PO BID METOP ROLOL TARTRATE 48728833110 Active Cyn Valentin LIPITOR 80 MG TABS 1 PO daily ATORVASTATIN CALCIUM 71091 438435 Active Cyn Valentin FISH OIL 1000 MG CAPS 3 PO daily OMEGA-3 FATTY AC IDS 28318441155 Active Cyn Valentin FLONASE 50 MCG/ACT SUSP 2 squirts each nostril daily FLUTICASONE PROPIONATE 99240494658 Active Veda Piedra Immunizations Vaccine Administration Date [...] 9.7 ug/mL Clinical Lists Update: CMP,FLP - Books Binder ry potassium, serum 4.7 mmol/L triglyceride, serum, [...] 0.4 mg/dL 0.1-1.3 sodium, serum 139 mmol/L 081-861 6662/03/10 sodium, serum 139 mmol/L 014-090 0764/09/03 chloride, blood 102 mmol/L 96-108 chloride, blood [...] 35 mg/dL 40-125 cholesterol, serum 142 mg/dL 533-292 3966/09/03 HDL cholesterol, serum 41 mg/dL 40-125 cholesterol, serum 137 mg/dL 100-200 Lab Report: TSH - Chemistry thyroid stimulating hormone, serum 2.490 u[iU]/mL 0 .300-5.000
== END 2019-01-21 09:50 | disposition home or self-care (01) ==
LOC: ENDO 07:53
PROVIDERS: ATTEND Surgery
DX: D12.8 Benign neoplasm of rectum (principal); K62.1 Rectal polyp; K60.2 Anal fissure, unspecified; K57.30 Diverticulosis of large intestine without perforation or abscess without bleeding; K21.9 Gastro-esophageal reflux disease without esophagitis; K22.70 Barrett's esophagus without dysplasia; I10 Essential (primary) hypertension; I25.10 Atherosclerotic heart disease of native coronary artery without angina pectoris; G40.909 Epilepsy, unspecified, not intractable, without status epilepticus; E78.5 Hyperlipidemia, unspecified; Z79.899 Other long term (current) drug therapy; Z87.891 Personal history of nicotine dependence; Z90.89 Acquired absence of other organs; Z79.02 Long term (current) use of antithrombotics/antiplatelets; Z79.82 Long term (current) use of aspirin; Z82.49 Family history of ischemic heart disease and other diseases of the circulatory system; Z83.3 Family history of diabetes mellitus
CPT/HCPCS: 88305

== ENCOUNTER 2021-04-15 08:06 | Outpatient (RCR) | payer BC, MEDICARE ==
[~2021-04-15 08:06] MED LIST changes: +DOCU-143 PO; -ISOS30TA3 PO; +ISOS30TA82 PO; -LISI10TA2 PO; +LISI10TA25 PO
== END 2021-04-18 | disposition home or self-care (01) ==
PROVIDERS: ATTEND Pain Medicine Interventional Pain Medicine
DX: M54.16 Radiculopathy, lumbar region (principal); I10 Essential (primary) hypertension

== ENCOUNTER 2021-05-18 08:04 | Outpatient (RCR) | payer BC, MEDICARE | END 2021-05-19 | disposition home or self-care (01) | PROVIDERS: ATTEND Pain Medicine Interventional Pain Medicine | DX: M54.16 Radiculopathy, lumbar region (principal); I10 Essential (primary) hypertension ==

== ENCOUNTER 2021-05-20 08:09 | Outpatient (RCR) | payer BC, MEDICARE | END 2021-05-20 09:26 | disposition home or self-care (01) | PROVIDERS: ATTEND Pain Medicine Interventional Pain Medicine | DX: M54.16 Radiculopathy, lumbar region (principal); I11.9 Hypertensive heart disease without heart failure ==

== ENCOUNTER → 2021-05-26 | Outpatient (CLI) | payer BC, MEDICARE ==
--- NOTE | 2021-05-26 11:40 | Diagnostic Imaging Report ---
INDICATION: 75-year-old male, peripheral vascular disease-I73.9. TECHNIQUE: Segmental pulse pressures were performed of the upper and lower extremities. FINDINGS: Resting Doppler Blood Pressures RIGHT Brachial: 128 mmHg Ankle (Posterior Tibial): 166 mm Hg-Index: 1.26 Ankle (Dorsalis Pedis): 162 mm Hg-Index: 1.23 LEFT Brachial: 132 mmHg Ankle (Posterior Tibial): 161 mm Hg-Index: 1.22 Ankle (Dorsalis Pedis): 148 mm Hg-Index: 1.12 IMPRESSION: Ankle-brachial indices as above. Ankle-Brachial Index Diagnosis/Interpretation <=0.90 Peripheral Arterial Disease 0.91-0.99 Borderline 1.00-1.40 Normal >1.40 Concern for noncompressible arteries, (assoc with Diabetes Mellitus) Dictated by: Dictated on workstation # [id number]
--- NOTE | 2021-05-26 12:14 | Diagnostic Imaging Report ---
PROCEDURE: US Bilateral lower extremity arterial. INDICATION: Lower extremity vascular disease. History of hypertension. I73.9 TECHNIQUE: Multiple real-time grayscale images were obtained over the bilateral lower extremities in in various projections. Additional duplex Doppler and color Doppler images were also obtained. COMPARISON: None FINDINGS: There is mild calcification of the major arteries of both legs. Right lower extremity: The major arteries of the right leg are patent to the ankle. There is detectable flow at the dorsalis pedis and posterior tibial arteries at the ankle. Biphasic waveform is present throughout the right lower extremity arterial system. There is no focal velocity changes to suggest a hemodynamically significant stenosis. Left lower extremity: The major arteries of the left leg are patent to the ankle. There is detectable flow at the dorsalis pedis and posterior tibial arteries at the ankle. Biphasic waveform is present throughout the left lower extremity arterial system. There is no focal velocity changes to suggest a hemodynamically significant stenosis. IMPRESSION: 1. Patent right lower extremity arterial system. There is no large vessel occlusion or hemodynamically significant stenosis in the right lower extremity. 2. Patent left lower extremity arterial system. There is no large vessel occlusion or hemodynamically significant stenosis in the left lower extremity. Dictated by: Dictated on workstation # [id number]
== END ==
LOC: RAD 09:48
PROVIDERS: ATTEND Internal Medicine
DX: I73.9 Peripheral vascular disease, unspecified (principal); I10 Essential (primary) hypertension
CPT/HCPCS: 93922; 93925

== ENCOUNTER → 2022-02-22 | Outpatient (CLI) | payer BC, MEDICARE ==
[~2022-02-22] MED LIST changes: +ALBU8.5H6 IH; +CATHETER FLUSH 10 ML SYR IVP PRN; +REGADENOSON 0.4 MG/5 ML SYR (LEXISCAN) IV ONE; -RT-ALBUINH IH
[2022-02-22 08:47] VITALS: BP 140/76
--- NOTE | 2022-02-22 11:32 | Cardiology Stress Test Report ---
Stress Test Report Date of Procedure/Referring: Date of Procedure: Feb 22, 2022 PCP No,Local Physician Admitting Physician Admitting Physician: Attending Physician: Britney Martell Indications: HTN Baseline Heart Rate: 60 Baseline Blood Pressure: Blood Pressure Systolic: 140 Blood Pressure Diastolic: 76 Baseline Vitals Vital Signs Date Time Temp Pulse Resp B/P (MAP) Pulse Ox O2 Delivery O2 Flow Rate FiO2 02/22/22 08:47 64 140/76 (97) Baseline EKG: Baseline EKG: NSR Summary After explaining the procedure to the patient, he signed a consent and then brought to the stress nuclear laboratory. Patient received 0.4 mg Lexiscan for stress test, ECG, heart rate and blood pressure were monitored continuously. Resting and stress dose of radio tracer were injected, imaging was acquired and reviewed in short axis, horizontal long axis and vertical long axis views. TID: 0.87 SSS: 3 SDS: 1 EF: 86 1. Fair exercise tolerance for a total of 7 minutes on standard Renard protocol, 8.3 METS, patient achieved only 77% of maximal expected heart rate. Could not achieve his target heart rate, test was terminated and converted to Lexiscan Myoview stress test 2. Patient tolerated Lexiscan well 3. Typical male pattern with no significant ischemia or infarction on SPECT images 4. Normal left ventricular size with normal contractility, ejection fraction 86% Copy Copies To 1: LOUANN VICTORIA BASHAR J MD Feb 22, 2022 11:32
== END ==
LOC: CARD 07:30
PROVIDERS: ATTEND Physician Assistant
DX: I10 Essential (primary) hypertension (principal); I25.10 Atherosclerotic heart disease of native coronary artery without angina pectoris
CPT/HCPCS: 78452; 93017; A9502

== ENCOUNTER → 2022-03-01 | Outpatient (CLI) | payer BC, MEDICARE ==
[~2022-03-01] MED LIST changes: -CATHETER FLUSH 10 ML SYR IVP PRN; -REGADENOSON 0.4 MG/5 ML SYR (LEXISCAN) IV ONE
== END ==
LOC: CARD 08:04
PROVIDERS: ATTEND Physician Assistant
DX: I11.9 Hypertensive heart disease without heart failure (principal)
CPT/HCPCS: 93306

== ENCOUNTER 2022-06-29 05:34 | Outpatient (CLI) | payer MEDICARE ==
[~2022-06-29] VITALS: Ht 157.5 cm; Wt 72.7 kg
[2022-07-03] MEDS ORDERED: GABA300C PO (13:28)
[2022-07-03] MEDS ORDERED: METO-333 PO (13:28)
[2022-07-03] MEDS ORDERED: NITR0.4T42 SL (13:28)
[2022-07-03] MEDS ORDERED: FLUT50DI IH (13:28)
[2022-07-03] MEDS ORDERED: IBUP-16 PO (13:28)
[2022-07-03] MEDS ORDERED: LISI10TA25 PO (13:28)
== END 2022-07-03 13:38 | disposition home or self-care (01) ==
LOC: PREOP 05:34
PROVIDERS: ATTEND Specialist
DX: Z01.818 Encounter for other preprocedural examination (principal)

== ENCOUNTER 2022-07-07 06:52 | Day surgery (SDC) | payer MEDICARE ==
[~2022-07-07] VITALS: Ht 157.4 cm; Wt 72.7 kg
[~2022-07-07 06:52] MED LIST changes: +FLUT50DI IH; +GABA300C PO; +IBUP-16 PO; +NITR0.4T42 SL
[2022-07-07] MEDS ORDERED: MIDAZOLAM 2 MG/2 ML (VERSED) VIAL ONE (07:02)
[2022-07-07 07:15] VITALS: BP 133/77
[2022-07-07] MEDS ORDERED: POVIDONE (BETADINE) OPHTH SOLN 5% 30 ML OP ONE (07:15)
[2022-07-07] MEDS ORDERED: MOXIFLOXACIN OPHTH SOLN 5 MG/ML 0.3 ML SYRINGE OP ONE (07:15)
[2022-07-07] MEDS ORDERED: TIMOLOL 0.5% (CATARACTS) 0.3 ML BTL OU PRN (07:15)
[2022-07-07] MEDS: TETRACAINE 0.5% OPHTH SOLN 4 ML BTL (SINGLE DOSE ONLY) OU PRN ×4 (07:19→07:40)
[2022-07-07] MEDS: TROPICAMIDE 1% OPH SOLN (MYDRIACYL) 15 ML BTL OP SCH ×3 (07:25→07:40)
[2022-07-07] MEDS: PHENYLEPHRINE 10% OPHTH (NEO-SYN) 5 ML BTL OU SCH ×3 (07:25→07:40)
--- NOTE | 2022-07-07 07:56 | Ophthalmologist Pre-Op Note ---
Pre-Operative Progress Note H&P Reviewed The H&P was reviewed, patient examined and no changes noted. Date H&P Reviewed: July 07, 2022 Time H&P Reviewed: 07:56 Pre-Op Dx Cataract, Right Eye JOSELINE ONEAL MD July 07, 2022 07:56
--- NOTE | 2022-07-07 08:13 | Ophthalmology Operative Report ---
Cataract removal/placement IOL PREOPERATIVE DIAGNOSIS: Cataract Right Eye POSTOPERATIVE DIAGNOSIS: Cataract Right Eye PROCEDURE: Cataract removal and placement of posterior chamber implant, right eye SURGEON: Roel Oneal ANESTHESIA: Topical with sedation COMPLICATIONS: None ESTIMATED BLOOD LOSS: Minimal DESCRIPTION OF PROCEDURE: After proper informed consent was obtained, the patient, a 76 male, was taken to the Operating Room and the right eye was anesthetized with tetracaine. The right eye was then prepped and draped in the usual manner. A wire lid speculum was placed. A paracentesis was made at the left hand position. Preservative free lidocaine was injected into the anterior chamber followed by viscoelastic. A clear corneal incision was made in the temporal position. A capsulorrhexis was preformed and the central nuclear and cortical material were removed. The posterior capsule was polished and Bradley 24.0 AU00T0 IOL was placed into the capsular bag. The residual viscoelastic was aspirated and balanced saline solution was injected into the anterior chamber. Moxifloxacin was injected into the anterior chamber. The wound was checked and found to be water tight. The patient tolerated the procedure well without complications. ROEL ONEAL MD July 07, 2022 08:13
[2022-07-07 08:19] VITALS: BP 137/63
[2022-07-07] MEDS ORDERED: acetaZOLAMIDE ER 500 MG CAP (DIAMOX SEQUELS) PO ONE (10:00)
--- NOTE | 2022-07-07 12:21 | Anesthesia-General Post-Op ---
MAC Patient Condition Mental Status/LOC: Same as Preop Cardiovascular: Satisfactory Nausea/Vomiting: Absent Respiratory: Satisfactory Pain: Controlled Complications: Absent Post Op Complications Complications None Follow Up Care/Instructions Patient Instructions None needed. Anesthesiology Discharge Order Discharge Order Patient is doing well, no complaints, stable vital signs, no apparent adverse anesthesia problems. No complications reported per nursing. BRUNO ASNTORO CRNA July 07, 2022 12:21
== END 2022-07-07 08:22 ==
LOC: SDC 06:52
PROVIDERS: ATTEND Specialist
DX: H25.11 Age-related nuclear cataract, right eye (principal); Z87.891 Personal history of nicotine dependence
CPT/HCPCS: 66984; V2632

== ENCOUNTER 2022-07-18 05:30 | Outpatient (CLI) | payer MEDICARE ==
[~2022-07-18] VITALS: Ht 157.5 cm; Wt 72.7 kg
== END 2022-07-18 15:10 | disposition home or self-care (01) ==
LOC: PREOP 05:30
PROVIDERS: ATTEND Specialist
DX: Z01.818 Encounter for other preprocedural examination (principal)

== ENCOUNTER 2022-07-21 06:31 | Day surgery (SDC) | payer MEDICARE ==
[~2022-07-21] VITALS: Ht 152 cm; Wt 72.7 kg
[2022-07-21] MEDS: TETRACAINE 0.5% OPHTH SOLN 4 ML BTL (SINGLE DOSE ONLY) OU PRN ×4 (06:41→07:00)
[2022-07-21] MEDS ORDERED: MOXIFLOXACIN OPHTH SOLN 5 MG/ML 0.3 ML SYRINGE OP ONE (06:45)
[2022-07-21] MEDS ORDERED: TIMOLOL 0.5% (CATARACTS) 0.3 ML BTL OU PRN (06:45)
[2022-07-21] MEDS ORDERED: POVIDONE (BETADINE) OPHTH SOLN 5% 30 ML OP ONE (06:45)
[2022-07-21] MEDS: PHENYLEPHRINE 10% OPHTH (NEO-SYN) 5 ML BTL OU SCH ×3 (06:49→07:01)
[2022-07-21] MEDS: TROPICAMIDE 1% OPH SOLN (MYDRIACYL) 15 ML BTL OP SCH ×3 (06:49→07:01)
[2022-07-21 06:55] VITALS: BP 163/74
--- NOTE | 2022-07-21 07:02 | Ophthalmologist Pre-Op Note ---
Pre-Operative Progress Note H&P Reviewed The H&P was reviewed, patient examined and no changes noted. Date H&P Reviewed: Jul 21, 2022 Time H&P Reviewed: 07:02 Pre-Op Dx Cataract, Left Eye JOSELINE ONEAL MD Jul 21, 2022 07:02
[2022-07-21] MEDS ORDERED: MIDAZOLAM 2 MG/2 ML (VERSED) VIAL ONE (07:43)
--- NOTE | 2022-07-21 08:06 | Ophthalmology Operative Report ---
Cataract removal/placement IOL PREOPERATIVE DIAGNOSIS: Cataract Left Eye POSTOPERATIVE DIAGNOSIS: Cataract Left Eye PROCEDURE: Cataract removal and placement of posterior chamber implant, left eye SURGEON: Roel Oneal ANESTHESIA: Topical with sedation COMPLICATIONS: None ESTIMATED BLOOD LOSS: Minimal DESCRIPTION OF PROCEDURE: After proper informed consent was obtained, the patient, a 76 male, was taken to the Operating Room and the left eye was anesthetized with tetracaine. The left eye was then prepped and draped in the usual manner. A wire lid speculum was placed. A paracentesis was made at the left hand position. Preservative free lidocaine was injected into the anterior chamber followed by viscoelastic. A clear corneal incision was made in the temporal position. A capsulorrhexis was preformed and the central nuclear and cortical material were removed. The posterior capsule was polished and an Bradley 24.0 AU00T0 was placed into the capsular bag. The residual viscoelastic was aspirated and balanced saline solution was injected into the anterior chamber. Moxifloxacin was injected into the anterior chamber. The wound was checked and found to be water tight. The patient tolerated the procedure well without complications. ROEL ONEAL MD Jul 21, 2022 08:06
[2022-07-21 08:12] VITALS: BP 159/78
[2022-07-21] MEDS ORDERED: acetaZOLAMIDE ER 500 MG CAP (DIAMOX SEQUELS) PO ONE (09:30)
--- NOTE | 2022-07-21 13:24 | Anesthesia-General Post-Op ---
MAC Patient Condition Mental Status/LOC: Same as Preop Cardiovascular: Satisfactory Nausea/Vomiting: Absent Respiratory: Satisfactory Pain: Controlled Complications: Absent Post Op Complications Complications None Follow Up Care/Instructions Patient Instructions None needed. Anesthesiology Discharge Order Discharge Order Patient is doing well, no complaints, stable vital signs, no apparent adverse anesthesia problems. No complications reported per nursing. RODDY SIMON CRNA Jul 21, 2022 13:24
== END 2022-07-21 08:15 | disposition home or self-care (01) ==
LOC: SDC 06:31
PROVIDERS: ATTEND Specialist
DX: H25.9 Unspecified age-related cataract (principal); Z87.891 Personal history of nicotine dependence; Z95.5 Presence of coronary angioplasty implant and graft
CPT/HCPCS: 66984; V2632